=== PATIENT | female | born 1945 | race Caucasian/White ===

== ENCOUNTER 2016-08-10 03:49 | Emergency (ER) | payer MEDICARE, OTHER ==
[2016-08-10 04:45] LABS: Hematocrit 34 % (35-47); Mean Corpuscular HGB Conc 33 g/dl (31-36); Mean Corpuscular Hemoglobin 29 pg (27-31); Mean Corpuscular Volume 88 fL (80-97); Mean Platelet Volume 9 um3 (7.4-10.4); Red Cell Distribution Width 17 % (10.5-15); White Blood Count 6.5 10^3/ul (3.5-10.8)
[2016-08-10 04:54] LABS: BUN/Creatinine Ratio 31.3 (8-20); Calcium 9.2 mg/dL (8.6-10.3); EGFR African American 87.7 (>60); EGFR Non-African American 68.2 (>60); Potassium 3.8 mmol/L (3.5-5.0)
--- NOTE | 2016-08-10 05:29 | ED ---
Lavon Momin Matthew, scribed for Facundo Vaughan MD on 08/10/16 at 0428 . Palpitations / Dysrhythmia - HPI Summary HPI Summary: A 71 y/o female presents to the ED with palpitations that started at 03:15 and has since resolved. She states that her HR was measured at 80 bpm and her baseline is typically 50 bpm. Her BP was measured to be 160/70 at home. Associated symptoms include anxiety. She states that she feels like she could be having an anxiety attack. She was recently Dx with hypothyroidism. - History of Current Complaint Chief Complaint: ED Time Seen by Provider: 08/10/16 04:18 Hx Obtained From: Patient Onset/Duration: Sudden Onset, Lasting Minutes, Resolved Timing: Constant Severity Initially: Mild Severity Currently: None Character: Fast Associated Signs & Symptoms: Negative - Allergy/Home Medications Allergies/Adverse Reactions: Allergies Allergy/AdvReac Type Severity Reaction Status Date / Time Codeine Allergy GI Upset Verified 08/06/16 11:05 PMH/Surg Hx/FS Hx/Imm Hx Endocrine/Hematology History: Reports: Hx Thyroid Disease Denies: Hx Diabetes Cardiovascular History: Reports: Hx Hypertension - ON MEDS Denies: Hx Pacemaker/ICD History: Denies: Hx Dialysis, Hx Renal Disease Sensory History: Denies: Hx Hearing Aid Psychiatric History: Denies: Hx Panic Disorder - Surgical History Surgery Procedure, Year, and Place: HYSTERECTOMY, BILAT BUNIONECTOMY; FATTY TUMOR REMOVAL LEFT SHOULDER; CSP FUSION Infectious Disease History: No Infectious Disease History: Denies: Traveled Outside the [place] in Last 30 Days - Family History Known Family History: Positive: Hypertension - Social History Alcohol Use: None Hx Substance Use: No Hx Tobacco Use: No Review of Systems Constitutional: Negative Eyes: Negative ENT: Negative Positive: Palpitations Respiratory: Negative Gastrointestinal: Negative Genitourinary: Negative Musculoskeletal: Negative Skin: Negative Neurological: Negative Positive: Anxious All Other Systems Reviewed And Are Negative: Yes Physical Exam Triage Information Reviewed: Yes Vital Signs On Initial Exam: Initial Vitals Temp Pulse Resp BP Pulse Ox 97.4 F 73 24 133/94 100 08/10/16 03:53 08/10/16 03:53 08/10/16 03:53 08/10/16 03:53 08/10/16 03:53 Vital Signs Reviewed: Yes Appearance: Positive: Well-Appearing, No Pain Distress Skin: Positive: Warm Head/Face: Positive: Normal Head/Face Inspection Eyes: Positive: RICKIE ENT: Positive: Hearing grossly normal Neck: Positive: Supple Respiratory/Lung Sounds: Positive: Clear to Auscultation, Breath Sounds Present Cardiovascular: Positive: RRR. Negative: Murmur Abdomen Description: Positive: Nontender, Soft Bowel Sounds: Positive: Present Musculoskeletal: Positive: Strength/ROM Intact Neurological: Positive: Sensory/Motor Intact, Alert, Oriented to Person Place, Time, Normal Gait Diagnostics - Vital Signs Vital Signs Temp Pulse Resp BP Pulse Ox 08/10/16 03:53 97.4 F 73 24 133/94 100 - Laboratory Lab Results: Lab Results 08/10/16 08/10/16 Range/Units 04:28 04:28 WBC 6.5 (3.5-10.8) 10^3/ul RBC 3.80 L (4.0-5.4) 10^6/ul Hgb 11.0 L (12.0-16.0) g/dl Hct 34 L (35-47) % MCV 88 (80-97) fL MCH 29 (27-31) pg MCHC 33 (31-36) g/dl RDW 17 H (10.5-15) % Plt Count 293 (150-450) 10^3/ul MPV 9 (7.4-10.4) um3 Neut % (Auto) 40.7 (38-83) % Lymph % (Auto) 43.9 (25-47) % [place] % (Auto) 9.4 H (1-9) % Eos % (Auto) 4.5 (0-6) % Baso % (Auto) 1.5 (0-2) % Absolute Neuts (auto) 2.7 (1.5-7.7) 10^3/ul Absolute Lymphs (auto) 2.9 (1.0-4.8) 10^3/ul Absolute Monos (auto) 0.6 (0-0.8) 10^3/ul Absolute Eos (auto) 0.3 (0-0.6) 10^3/ul Absolute Basos (auto) 0.1 (0-0.2) 10^3/ul Absolute Nucleated RBC 0 10^3/ul Nucleated RBC % 0 Sodium 137 (133-145) mmol/L Potassium 3.8 (3.5-5.0) mmol/L Chloride 105 (101-111) mmol/L Carbon Dioxide 25 (22-32) mmol/L Anion Gap 7 (2-11) mmol/L BUN 26 H (6-24) mg/dL Creatinine 0.83 (0.51-0.95) mg/dL Est GFR ( Amer) 87.7 (>60) Est GFR (Non-Af Amer) 68.2 (>60) BUN/Creatinine Ratio 31.3 H (8-20) Glucose 103 H (70-100) mg/dL Calcium 9.2 (8.6-10.3) mg/dL TSH Pending Free T4 Pending Free T3 Pending Pertinent Lab Values Are: WNL Result Diagrams: 08/10/16 04:28 08/10/16 04:28 Lab Statement: Any lab studies that have been ordered have been reviewed, and results considered in the medical decision making process. - EKG 04:09 Cardiac Rate: NL - 65 bpm EKG Rhythm: Sinus Rhythm Re-Evaluation - Re-Evaluation First Eval Change: Improved Course/Dx - Course Assessment/Plan: A 71 y/o female presents to the ED with palpitations that started at 03:15 and has since resolved. Labs were reviewed. EKG shows NSR at 65 bpm. The patient will be discharged home and follow-up with her PCP. - Diagnoses Provider Diagnoses: Palpitations Discharge - Discharge Plan Condition: Stable Disposition: HOME Patient Education Materials: Palpitations (ED) Referrals: Kika Hubbard NP [Primary Care Provider] - 3 Days Additional Instructions: Please follow-up with your primary care physician in 3 days. The documentation as recorded by the Lavon douglas Matthew accurately reflects the service I personally performed and the decisions made by , Facundo Vaughan MD.
[2016-08-10 05:43] LABS: TSH (Thyroid Stimulating Horm) 0.24 mcIU/mL (0.34-5.60)
[2016-08-10 05:48] LABS: Free T3 3.3 pg/mL (2.5-3.9)
[2016-08-10 05:49] LABS: Free T4 1.31 ng/dL (0.61-1.12)
[2016-08-10 06:30] VITALS: BP 131/62
== END 2016-08-10 06:20 | disposition home or self-care (01) ==
LOC: ED 03:49
DX: R00.2 Palpitations (principal); F41.9 Anxiety disorder, unspecified; Z85.850 Personal history of malignant neoplasm of thyroid
CPT/HCPCS: 36415; 80048; 84439; 84443; 84481; 85025; 86803; 93005; 99283

== ENCOUNTER → 2016-08-26 | Day surgery (SDC) | payer MEDICARE, OTHER ==
[~2016-08-26] MED LIST: Buffered Lidocaine 1% SYR 3ML* 3 ML/SYR SYRINGE INTRADERM ONE; Bupivacaine 0.25% SDV* 30 ML ONE; Dexamethasone IV* 4 MG/ML 1 ML (4 MG) IV SLOW PU ONE; Dexamethasone IV* 4 MG/ML 1 ML (4 MG) ONE; EPHEDrine (Pressors)* 50 MG/ML VIAL ONE; Famotidine IV* 10 MG/ML 2 ML (20 mg) IV ONE; Famotidine IV* 10 MG/ML 2 ML (20 mg) ONE; Ketorolac INJ* 30 MG/ML 1 ML VIAL ONE; Lidocaine 2% PF * 5 ML VIAL ONE; Midazolam* 1 MG/ML 2 ML VIAL (2 MG) ONE; Ondansetron INJ* 2 MG/ML VIAL ONE; PROCHLORPERAZINE INJ 5 MG/ML 2 ML VIAL IV PRN; Propofol* 10 MG/ML 20 ML BTL IV PUSH ONE; ROPIVACAINE 5 MG/ML 30 ML BTL (0.5%) ONE; Rocuronium* 10 MG/ML VIAL ONE; ceFAZolin 2 GM PREMIX (*) 2 GM/50 ML BAG IVPB ONE; fentaNYL* 50 MCG/ML 2 ML VIAL (100 MCG VIAL) IV PRN; fentaNYL* 50 MCG/ML 2 ML VIAL (100 MCG VIAL) ONE; oxyCODONE/Acetamin 5/325 MG* TAB PO PRN
[2016-08-26 16:06] VITALS: BP 133/71
--- NOTE | 2016-08-30 20:03 | OP ---
CC: PCP OPERATIVE NOTE: DATE OF OPERATION: 08/26/16 DATE OF : 49 SURGEON: Mark Quarles MD BIODIESEL ENGINE SPECIALIST: ISAEL Muir ANESTHESIOLOGIST: Dr. Scales. ANESTHESIA: General interscalene block. PRE-OP DIAGNOSES: Right shoulder high-grade partial-thickness rotator cuff tear , and biceps tendinitis as well as right ring finger trigger finger. POST-OP DIAGNOSES: Right shoulder high-grade partial-thickness rotator cuff tear, and biceps tendinitis as well as right ring finger trigger finger. OPERATIVE PROCEDURE: 1. Right shoulder arthroscopy with: A. Extensive glenohumeral debridement including chondroplasty. B. Rotator cuff repair of the supraspinatus tendon, double-row. C. Subacromial decompression with chondroplasty. C. Subpectoral biceps tenodesis. 2. Right ring finger trigger release. COMPLICATIONS: None. ESTIMATED BLOOD LOSS: Minimal. IMPLANTS USED: One 4.75 HEALICOIL, one MULTI-FIX anchor, one 2.8 mm Q-FIX anchor. 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 She had an MRI that confirmed high-grade partial- thickness tear of the supraspinatus tendon as well as undersurface tear of the subscapularis and biceps tendinitis. She initially was having symptoms of acromioclavicular arthritis, but that has improved. She also complained of right ring finger triggering. Risks and benefits of the surgery versus nonoperative treatment were discussed at length and she elected to proceed with operative management. Risks included but are not limited to bleeding, infection , damage to nerves, vessels, surrounding structures, the wound nonhealing, stiffness, persistent pain, need for further surgery, scarring, incomplete relief of symptoms, recurrent triggering, retear, risks of DVT, and risks of anesthesia. She elected to proceed. DESCRIPTION OF PROCEDURE: The patient was greeted in the preoperative area by the attending surgeon. The correct extremities were marked including the right shoulder and the right ring trigger finger. The consent was confirmed and the positions were marked. The patient was then brought back to the operating suite , where she was placed in supine position on the operating table. She then underwent interscalene nerve block by the anesthesiologist, which she tolerated without difficulty. The patient then underwent general anesthesia with endotracheal intubation. After which, the examination of the shoulder was done and she was found to have full range of motion. The patient was then placed in the left lateral decubitus position with an axillary roll. All bony prominences were padded and she was supported with a pegboard. The right arm was draped unsterilely with about 10 pounds of traction. The right shoulder was then prepped and draped in the usual sterile fashion, beginning with chlorhexidine, soap scrub, and alcohol wipe and a final prep with ChloraPrep. After appropriate surgical pause indicating site, side, procedure, and administration of antibiotics; a posterolateral portal was made sharply with an 11- blade. The scope was introduced into the joint. The joint was examined. There was undersuface tearing of the rotator cuff supraspinatus tendon, which showed high- grade partial-thickness tearing about 40% of the tendon with unstable flaps. The biceps was very diseased with tendinosis as well as tendinitis. The undersurface of the subscap had partial thickness tearing. An anterior portal was made in an outside-in fashion and the shaver was brought in to debride the unstable flaps under the rotator cuff. The biceps was then tenotomized and then using the arthroscopic biter, the shaver was used to debride the biceps stump back. The undersurface of the subscap was identified and had about 5% tearing, which was debrided back. The glenohumeral joint was examined. The glenoid had grade 0 to 1 changes with a small area in the center that had grade 2 changes with unstable flaps. There was small loose debris that was evident that was debrided back with the shaver. The glenoid had grade 2 changes with unstable flaps. Again, the shaver was used to debride this back. Once the chondroplasty was completed, attention was directed to the labrum. The anterior and posterior labrum had mild unstable fraying, which was debrided back using the shaver. The inferior recess was intact, was mildly erythematous. Once the debridement and tenotomy were completed, the attention was directed to the subacromial space. There was abundant bursa that was evident in the subacromial space. The lateral portal was made in an outside-in fashion. The shaver was used to debride back the bursa, which exposed the undersurface of the acromion, which was then skeletonized using the electrocautery device, which revealed a moderate sized spur. The 4-0 oval bur was then used to do an acromioplasty. The ACL joint was examined, it was phenomic with a large osteophyte inferiorly. This was then coplanes but a formal distal clavicle excision was not done. All loose debris was removed and the rotator cuff was probed and it was found to be quite thin and easily probed through, a knife was brought in to complete the rotator cuff tear and decision was made to repair. The rotator cuff was debrided back to stable layer. The footprint was exposed using the shaver as well as the electrocautery device. The greater tuberosity was then prepared using also a rasp. Once the tendon was completely released, a one anchor 4.75 HEALICOIL was placed with excellent purchase into the bone. The sutures were then passed in a horizontal mattress configuration and tied down using arthroscopic knot tying. The 4 stranded sutures were then placed through the MULTIFIX anchor, which was then placed for the lateral row, we thus completing a double-row repair. Final images were obtained and all loose debris was removed from the shoulder. Attention was directed to the biceps, the anterior aspect of the shoulder was prepped. The bed was slightly airplaned to the right side. The anterior aspect of the shoulder was prepped and was reprepped with ChloraPrep and incision was made in line with the biceps tendon encompassing the inferior two- thirds of the pec tendon, was then made with a 15-blade. Soft tissues were carefully dissected with a Metzenbaum scissor. An electrocautery was used for hemostasis. Once the pec fascia was identified, the blunt dissection was done from here and on. The biceps groove was palpated and the [place] retractor was used to elevate the pec tendon superiorly. The biceps groove was exposed. The biceps was then brought back through the wound using a right angle clamp and it was identified to be very thick with tendinosis as well as tendinitis. The biceps groove was then prepared in the usual fashion with the electrocautery device, the small ball rasp, and the osteotome to help create a bony bleeding edge. The Q-FIX anchor was then used to drill unicortically and the Q-FIX anchor was deployed with excellent purchase. The sutures were then passed through the tendon approximately 1 cm proximal to the musculotendinous junction in a Britton-Allis type configuration. Sutures were then shuttled back after the excess stump was removed and tied down. The wounds were copiously irrigated. The anterior wound was closed in layers of 2-0 Vicryl and 0 Monocryl. The portals were closed with 3-0 nylon. Sterile dressings were applied as well as a cryo/Cuff. At this point, the next surgery was done. The drapes were removed and the patient was positioned in the supine position. A small armboard was brought to the table and the right arm was prepped and draped with care to not damage the previously repaired rotator cuff. A small forearm tourniquet was placed on the forearm. The hand was prepped and draped in the usual sterile fashion, beginning with chlorhexidine, soap, and alcohol and a final prep of ChloraPrep. The hand was prepped and draped in the usual sterile fashion. This portion of the surgery was completed using loupe magnification. After appropriate surgical pause, indicating site, side, procedure, and administration of antibiotics; the arm was exsanguinated. The tourniquet inflated to 250 mmHg. A transverse incision centered over the A1 meenakshi of the right ring finger was then made sharply with 15-blade and soft tissue were carefully dissected with gentle retractors in place to protect neurovascular bundle. The A1 meenakshi was identified. This was then sharply incised using a 15 -blade. First, the completion was done more distally to ensure that this was completely released with the scissors and then taking more proximally to make sure if it was completely released. Once there was no meenakshi apparent, the [place] retractors were then used to take the tendons out, each tendon through the wound to make sure there was no more triggering. The wound was then copiously irrigated. The incisions were closed with 4-0 nylon in an interrupted fashion. The sterile dressings were applied and tourniquet was deflated for a total time of 11 minutes and the extremity was pink and well perfused afterwards. At this point, the drapes were removed. The patient was then placed in the UltraSling with a Cryo/cuffs. The patient was then awoken from anesthesia and transferred to PACU in stable condition. POSTOPERATIVE PLAN: She will be nonweightbearing. She will be on UltraSling for 6 weeks. She will be allowed to work on elbow, wrist, and hand range of motion. She will be discharged on pain medications as well as antibiotics. DVT prophylaxis was considered, but deferred due to no previous personal or family history. I will see the patient back in about 10 to 14 days. [id number]/[facility] #: [id number] RACHEL
== END | disposition home or self-care (01) ==
LOC: OREAST 08:53
PROVIDERS: ATTEND Orthopaedic Surgery
DX: M75.101 Unspecified rotator cuff tear or rupture of right shoulder, not specified as traumatic (principal); M75.21 Bicipital tendinitis, right shoulder; M65.341 Trigger finger, right ring finger; I10 Essential (primary) hypertension; E03.9 Hypothyroidism, unspecified; E78.5 Hyperlipidemia, unspecified
CPT/HCPCS: 88304; C1713; C1776; J0690; J1100; J1885; J2250; J2405; J2704; J2795; J3010

== ENCOUNTER 2017-06-03 07:38 | Inpatient (IN) | payer MEDICARE, OTHER ==
--- NOTE | 2017-05-21 18:23 | HP ---
HISTORY AND PHYSICAL: DATE OF SURGERY: 06/03/17 DATE OF OFFICE VISIT: 05/21/17 SURGEON: Missy June MD * (DICTATED BY ISAEL GUTIÉRREZ) PROCEDURE: Left total hip arthroplasty. CHIEF COMPLAINT: Left hip pain. HISTORY OF PRESENT ILLNESS: Ms. Sanchez is a 72-year-old female with complaints of left hip pain secondary to end-stage osteoarthritis. She has failed conservative management and elected to proceed with a left total hip arthroplasty, which is scheduled for 06/03/[address] June. PAST MEDICAL HISTORY: Hypertension, hypothyroidism, GERD. PAST SURGICAL HISTORY: Hysterectomy, rotator cuff repair of right shoulder, bilateral bunionectomies, hammertoe repair, and cervical fusion. CURRENT MEDICATIONS: 1. Calcium. 2. Ibuprofen. 3. Levothyroxine. 4. Metoprolol 25 mg daily. 5. Ranitidine 150 mg twice daily. 6. Fluoxetine 40 mg daily. 7. Probiotic. 8. Vitamin B12. 9. Vitamin D3. 10. Vitamin B Complex. 11. Adrenal support. 12. Compounded estrogen/testosterone. 13. Atorvastatin 20 mg daily. ALLERGIES: CODEINE causing nausea only. FAMILY HISTORY: Cancer, stroke, and lupus. SOCIAL HISTORY: A 72-year-old female. She lives with her . She does not smoke or use drugs. She uses occasional alcohol. 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 REVIEW OF SYSTEMS: A complete 14-point review of systems was reviewed with the patient, it was positive for hypothyroidism and occasional palpitations. She denies history of DVT, PE, or anesthesia problems. PHYSICAL EXAMINATION GENERAL: She is well developed, well nourished, in no acute distress. VITAL SIGNS: She stands 5 feet 7 inches tall, weighs 150 pounds. Her blood pressure is 140/80, her heart rate is 68. HEENT: Normocephalic, atraumatic. NECK: Supple. No palpable lymph nodes. CARDIO: Regular rate and rhythm. Strong S1, S2. ABDOMEN: Soft, nontender, nondistended. MUSCULOSKELETAL: Left lower extremity, the skin is intact. There are no open wounds or abrasions. She walks with an antalgic gait, favoring her left leg. She has decreased internal and external rotation of the left hip. 2+ dorsalis pedis pulses, intact sensation. Her lower extremity muscle group strengths are intact at 5/5. NEUROLOGIC: She is alert and oriented x3. Cranial nerves II through XII are intact. ASSESSMENT AND PLAN: Ms. Sanchez is a 72-year-old female with complaints of left hip pain secondary to end-stage osteoarthritis. She has failed conservative management, elected to proceed with a left total hip arthroplasty which is scheduled for 06/03/[address] June discussed the risks and benefits of the surgery at today's visit and all of her questions were answered. Percocet, Colace, and Coumadin were sent to her pharmacy for postoperative pain control and DVT prophylaxis. She will follow up with Dr. June 2 weeks after the surgery. ISAEL GUTIÉRREZ [id number]/[facility] #: [id number] MTDD
[~2017-06-03 07:38] MED LIST changes: +Buffered Lidocaine 0.9% SYRIN* 5 ML/SYR SYRINGE INTRADERM ONE; -Buffered Lidocaine 1% SYR 3ML* 3 ML/SYR SYRINGE INTRADERM ONE; -Bupivacaine 0.25% SDV* 30 ML ONE; -Dexamethasone IV* 4 MG/ML 1 ML (4 MG) IV SLOW PU ONE; -Dexamethasone IV* 4 MG/ML 1 ML (4 MG) ONE; +DiMENhydriNATE IV* 50 MG/ML VIAL IV PUSH PRN; -EPHEDrine (Pressors)* 50 MG/ML VIAL ONE; -Famotidine IV* 10 MG/ML 2 ML (20 mg) ONE; -Ketorolac INJ* 30 MG/ML 1 ML VIAL ONE; -Lidocaine 2% PF * 5 ML VIAL ONE; -Midazolam* 1 MG/ML 2 ML VIAL (2 MG) ONE; +Morphine INJ* 2 MG/ML 1 ML SYRINGE (TWO MG - NEW SYRINGE VERSION) IV PRN; -Ondansetron INJ* 2 MG/ML VIAL ONE; -Propofol* 10 MG/ML 20 ML BTL IV PUSH ONE; -ROPIVACAINE 5 MG/ML 30 ML BTL (0.5%) ONE; -Rocuronium* 10 MG/ML VIAL ONE; +Scopolamine 1.5 mg* PATCH TRANSDERM PRN; -ceFAZolin 2 GM PREMIX (*) 2 GM/50 ML BAG IVPB ONE; -fentaNYL* 50 MCG/ML 2 ML VIAL (100 MCG VIAL) ONE; -oxyCODONE/Acetamin 5/325 MG* TAB PO PRN
[2017-06-03] MEDS ORDERED: Famotidine IV* 10 MG/ML 2 ML (20 mg) ONE (08:12)
[2017-06-03] MEDS ORDERED: Buffered Lidocaine 0.9% SYRIN* 5 ML/SYR SYRINGE ONE (08:12)
[2017-06-03] MEDS ORDERED: ceFAZolin 2 GM PREMIX (*) 2 GM/50 ML BAG IVPB ONE (08:12)
[2017-06-03] MEDS ORDERED: KETAMINE HCL* 50 MG/ML 10 ML VIAL ONE (08:35)
[2017-06-03] MEDS ORDERED: fentaNYL* 50 MCG/ML 2 ML VIAL (100 MCG VIAL) ONE (08:35)
[2017-06-03] MEDS ORDERED: Midazolam* 1 MG/ML 5 ML VIAL (5 MG) ONE (08:35)
[2017-06-03] MEDS ORDERED: Morphine PF AMP (0.5MG/ML)* 5 MG/10 ML AMP ONE (08:36)
[2017-06-03] MEDS ORDERED: Midazolam* 1 MG/ML 2 ML VIAL (2 MG) ONE (09:56)
[2017-06-03] MEDS ORDERED: Ondansetron INJ* 2 MG/ML VIAL ONE (11:00)
[2017-06-03] MEDS ORDERED: Dexamethasone IV* 4 MG/ML 1 ML (4 MG) ONE (11:00)
[2017-06-03] MEDS ORDERED: Propofol* 500 MG/50 ML BTL ONE (11:01)
[2017-06-03] MEDS ORDERED: Phenylephrine INJ* 10 MG/ML 1 ML VIAL (10 MG) ONE (11:01)
[2017-06-03] MEDS ORDERED: Bupivacaine 0.5% SDV PF* 30 ML VIAL ONE (11:01)
[2017-06-03] MEDS ORDERED: Lidocaine 2% PF * 5 ML VIAL ONE (11:01)
[2017-06-03] MEDS ORDERED: PROCHLORPERAZINE INJ 5 MG/ML 2 ML VIAL IV PRN (11:04)
[2017-06-03] MEDS ORDERED: Ketorolac INJ* 30 MG/ML 1 ML VIAL IV PRN (11:04)
[2017-06-03] MEDS ORDERED: Scopolamine 1.5 mg* PATCH TRANSDERM PRN (11:04)
[2017-06-03] MEDS ORDERED: Ondansetron INJ* 2 MG/ML VIAL IV PRN (11:04)
[2017-06-03] MEDS ORDERED: DiMENhydriNATE IV* 50 MG/ML VIAL IV PUSH PRN (11:04)
[2017-06-03] MEDS ORDERED: Scopolamine PATCH Remove* 1 NOTE MISC PATCH OFF PRN (11:04)
[2017-06-03] MEDS ORDERED: diPHENhydraMINE IV* 50 MG/ML 1 ml VIAL (BENADRYL) IV PRN (11:04)
[2017-06-03] MEDS ORDERED: Naloxone* 2 MG in NS 0.9% 250 ML* 250 ML IV PRN (11:04)
[2017-06-03] MEDS ORDERED: Nalbuphine* 20 MG/ML 1 ML VIAL IV PRN (11:04)
[2017-06-03] MEDS ORDERED: Naloxone* 0.4 MG/ML 1 ML VIAL IV PRN (11:04)
[2017-06-03] MEDS ORDERED: Bisacodyl SUPP* 10 MG SUPP PR PRN (11:34)
[2017-06-03] MEDS ORDERED: Magnesium Hydroxide LIQ* 30 ML UDC PO PRN (11:34)
[2017-06-03] MEDS ORDERED: Polyethylene Glycol 3350* 17 GM PACKET PO PRN (11:34)
[2017-06-03] MEDS ORDERED: Acetaminophen TAB* 325 MG PO PRN (11:34)
[2017-06-03] MEDS ORDERED: ceFAZolin 1 GM VIAL(*) 1 GM in NS 0.9% 50 ML* 50 ML IVPB SCH (12:00)
--- NOTE | 2017-06-03 12:37 | RAD ---
HISTORY: Status post left hip arthroplasty COMPARISONS: June 03, 2017 at 11:18 AM VIEWS: 1, Single frontal view of the pelvis FINDINGS: BONE DENSITY: Normal. BONES: The patient is status post left hip arthroplasty. On the single frontal projection, there is no appreciable hardware failure or osteolysis. JOINTS: The patient is status post left hip arthroplasty ALIGNMENT: There is no dislocation. SOFT TISSUES: Unremarkable. OTHER FINDINGS: None. IMPRESSION: STATUS POST LEFT HIP ARTHROPLASTY
--- NOTE | 2017-06-03 12:49 | RAD ---
CPT II Codes: 6045F INDICATION: There are scattered sutures that did not meet the final count during left MIGUEL TECHNIQUE: Intraoperative fluoroscopy was provided during left total hip arthroplasty. FINDINGS: A single AP spot film depicts the acetabular cup prosthesis and femoral shaft prosthesis in anatomic alignment. The femoral head prosthesis has not yet been installed. Visualized bones appear to be intact and appropriately aligned. No suture needles are visualized. Fluoroscopy time: 1 second IMPRESSION: As above.
--- NOTE | 2017-06-03 13:10 | CONSULT ---
Subjective Date of Service: 06/03/17 Interval History: This is a pleasant 72 year old female with long standing history of OA of the left hip that failed conservative treatment that underwent an elective Left MIGUEL today. She was seen in the PAC, in NAD, tremulous likely 2/2 anesthesia effects. No complaints, moderately drowsy, but appropriate. Family History: Findings - FatherCAD, CVA; Mother lung and brain CA Social History: Findings - Denies smoking, denies ETOH, denies illicit substance use Past Medical History: Findings - HTN, hypothyroidism, adrenal insufficiency, OA , GERD, HLP, depression. Surgical hx includes ACDF, partial hysterectomy, bunionectomy, shoulder arthroplasty Review of Systems - Measurements Intake and Output: Intake and Output Last 24 Hours 06/01/17 06/02/17 06/03/17 06/04/17 06:59 06:59 06:59 06:59 Intake Total 2550 Output Total 550 Balance 2000 Weight 150 lb Intake: IV Fluids 2550 LR 2500 NS 50ML, Cefazolin 2G 50 Output: Andrade 550 - Review of Systems Constitutional Symptoms: Negative: Weight Gain, Weight Loss, Weakness, Fatigue, Fever, Night Sweats, Unexplained Falls, Other Dermatology: Positive: Normal HEENT: Positive: Normal Eyes: Positive: Normal Thyroid: Positive: Primary Hypothyroidism Pulmonary: Positive: Normal Cardiology: Positive: Normal Gastroenterology: Positive: Normal Genital - Urinary: Positive: Normal Genitourinay - Female: Positive: Menopause Musculoskeletal: Positive: Joint Pain, Osteoporosis Endocrinology: Positive: Thyroid Problems, Adrenal Problems Hematologic/Lymphatic: Negative: Anemia, Easy Brusing, Hx Leukemia, Hx Lymphoma, Use of Anticoagulant, Use of Antiplatelet Drugs, Other Neurology: Positive: Normal Psychiatry: Positive: Normal Allergic/Immunologic: Negative: Hx Anaphylaxis, Hx Angioedema, Hx Environmental, Hx Seasonal, Athsma, Hx HIV, Immunocompromise, Swollen Glands LymphNodes, Other Objective Active Medications: Acetaminophen (Tylenol Tab*) 650 mg PO Q4H PRN PRN Reason: PAIN OR TEMPERATURE Hydrocodone Bitart/Acetaminophen ([place] 5-325 Tab*) 2 tab PO Q4H PRN PRN Reason: give one dose to start Atorvastatin Calcium (Lipitor*) 20 mg PO 1700 PEGGY Bisacodyl (Dulcolax Supp*) 10 mg CO DAILY PRN PRN Reason: constipation Dimenhydrinate (Dramamine Iv*) 12.5 mg IV PUSH ONCE PRN PRN Reason: NAUSEA/VOMITING Dimenhydrinate (Dramamine Iv*) 12.5 mg IV PUSH Q6H PRN PRN Reason: Nausea/Vomiting Diphenhydramine HCl (Benadryl Iv*) 12.5 mg IV Q6H PRN PRN Reason: PRURITIS Diphenhydramine HCl (Benadryl Iv*) 12.5 mg IV Q6H PRN PRN Reason: PRURITIS Docusate Sodium (Colace Cap*) 100 mg PO BID [facility] Enoxaparin Sodium (Lovenox(*)) 30 mg SUBCUT Q24H [facility] Famotidine (Pepcid Iv*) 20 mg IV ONCE ONE Stop: 06/03/17 06:01 Last Admin: 06/03/17 08:40 Dose: 20 mg Fentanyl Citrate (Fentanyl*) 25 mcg IV Q5M PRN PRN Reason: PAIN - MODERATE Lactated Ringer's (Lactated Ringers 1000 Ml Bag*) 1,000 mls @ 125 mls/hr IV PER RATE [facility] Last Admin: 06/03/17 08:40 Dose: 125 mls/hr Naloxone HCl 2 mg/ Sodium (Chloride) 255 mls @ 21.68 mls/hr IV .INITIAL RATE PRN; 2.5 MCG/KG/HR PRN Reason: severe pruritis Stop: 06/04/17 03:03 Cefazolin Sodium 1 gm/ Sodium (Chloride) 50 mls @ 200 mls/hr IVPB Q8H [facility] Stop: 06/04/17 04:14 Lactated Ringer's (Lactated Ringers 1000 Ml Bag*) 1,000 mls @ 100 mls/hr IV PER RATE [facility] Ketorolac Tromethamine (Toradol Inj*) 15 mg IV Q6H PRN PRN Reason: PAIN Lactulose (Lactulose*) 30 ml PO Q6H PRN PRN Reason: constipation Levothyroxine Sodium (Synthroid Tab*) 137 mcg PO QAM [facility] Lidocaine/Sodium Bicarbonate (Buffered Lidocaine 0.9% Syrin*) 0.2 ml INTRADERM ONCE ONE Stop: 06/02/17 10:59 Last Admin: 06/03/17 08:39 Dose: 1 applic Magnesium Hydroxide (Milk Of Magnesia Liq*) 30 ml PO Q6H PRN PRN Reason: constipation Morphine Sulfate (Morphine Inj (Syringe)*) 2 mg IV Q5M PRN PRN Reason: PAIN - SEVERE Morphine Sulfate (Morphine Inj (Syringe)*) 2 mg IV Q2H PRN PRN Reason: PAIN Nalbuphine HCl (Nubain*) 5 mg IV Q6H PRN PRN Reason: pruritis Naloxone HCl (Narcan*) 0.08 mg IV Q2M PRN PRN Reason: respiratory depression Non-Formulary Medication (Fluoxetine Hcl [Prozac]) 40 mg PO DAILY PEGGY Non-Formulary Medication (Metoprolol Succinate) 25 mg PO QAM PEGGY Ondansetron HCl (Zofran Inj*) 2 mg IV Q6H PRN PRN Reason: Nausea/Vomiting Ondansetron HCl (Zofran Inj*) 4 mg IV Q6H PRN PRN Reason: nausea Ondansetron HCl (Zofran Tab*) 4 mg PO Q6H PRN PRN Reason: NAUSEA Oxycodone HCl (Roxycodone Tab*) 10 mg PO Q4H PRN PRN Reason: SEVERE PAIN Oxycodone/Acetaminophen (Percocet 5/325 Tab*) 1 tab PO Q4H PRN PRN Reason: PAIN Oxycodone/Acetaminophen (Percocet 5/325 Tab*) 2 tab PO Q4H PRN PRN Reason: PAIN Pharmacy Profile Note (Scopolamine Patch Remove*) 1 note PATCH OFF Q72H ONE Stop: 06/06/17 05:44 Pharmacy Profile Note (Scopolamine Patch Remove*) 1 note PATCH OFF .AFTER 72 HOURS PRN PRN Reason: nausea Stop: 06/06/17 11:05 Polyethylene Glycol/Electrolytes (Miralax*) 17 gm PO DAILY PRN PRN Reason: Constipation Prochlorperazine Edisylate (Compazine Inj*) 2.5 mg IV ONCE PRN PRN Reason: NAUSEA/VOMITING Prochlorperazine Edisylate (Compazine Inj*) 2.5 mg IV Q6H PRN PRN Reason: NAUSEA/VOMITING Scopolamine (Transderm-Scop 1.5 Mg Patch*) 1 patch TRANSDERM Q72H PRN PRN Reason: Nausea/Vomiting Scopolamine (Transderm-Scop 1.5 Mg Patch*) 1 patch TRANSDERM Q72H PRN PRN Reason: nausea Warfarin Sodium (Coumadin Tab(*)) 6 mg PO ONCE@1700 ONE PRN Reason: Protocol Stop: 06/03/17 17:01 Vital Signs 06/03/17 06/03/17 06/03/17 07:56 12:43 12:50 Temperature 97.0 F 97.3 F Pulse Rate 68 72 78 Respiratory 17 13 15 Rate Blood Pressure 125/68 139/65 142/75 (mmHg) O2 Sat by Pulse 97 100 100 Oximetry 06/03/17 12:59 Temperature Pulse Rate 79 Respiratory 15 Rate Blood Pressure 130/64 (mmHg) O2 Sat by Pulse 100 Oximetry Oxygen Devices in Use Now: Nasal Cannula Eyes: No Scleral Icterus Ears/Nose/Mouth/Throat: NL Teeth, Lips, Gums Neck: Trachea Midline, No Thyroid Enlargement, Masses Respiratory: Symmetrical Chest Expansion and Respiratory Effort, Clear to Auscultation Cardiovascular: NL Sounds; No Murmurs; No JVD, No Edema Abdominal: NL Sounds; No Tenderness; No Distention Lymphatic: No Cervical Adenopathy Extremities: No Edema, No Clubbing, Cyanosis Skin: No Rash or Ulcers Neurological: Alert and Oriented x 3, NL Sensation EKG Data: Pre-op EKG reviewed shows RSR with no ectopy and no ST segment changes Assessment/Plan - Billing Impression: This is a 72 year old female, admitted to surgical service for elective LTHA, for which we are requested to help co-manage medically for hypertension. Diagnoses and Plan: 1. OA, s/p LTHA 2. Post-op Tremors, likely r/t anesthesia, stable 3. HTN, stable 4. Hypothyroidism 5. Hx of Depression Plan - Primary POC as per orthopedics, pain control per protocol, VTE prophylaxis with coumadin per surgery - Hip precautions, WBAT and PT as per surgery - PUD prophy with pepcid - Regular diet - Continue metoprolol, monitor BP, adjust as needed - Monitor H&H daily - Continue levothyroxine daily - Continue maintenance IVF - Full code Attending: Estuardo Nelson
--- NOTE | 2017-06-03 13:58 | RAD ---
HISTORY: Status post left hip arthroplasty COMPARISONS: June 03, 2017 at 12:09 PM VIEWS: 3, Frontal view of the pelvis with frontal and crosstable lateral views of the left hip FINDINGS: BONE DENSITY: Normal. BONES: The patient is status post left hip arthroplasty. There is no hardware failure or osteolysis. JOINTS: The patient is status post left hip arthroplasty ALIGNMENT: There is no dislocation. SOFT TISSUES: Unremarkable. OTHER FINDINGS: None. IMPRESSION: STATUS POST LEFT HIP ARTHROPLASTY
[2017-06-03] MEDS: HYDROcodone/ACETAMIN 5-325 MG* 1 TAB PO PRN ×2 (15:03→20:29)
[2017-06-03] MEDS ORDERED: Warfarin TAB(*) 6 MG PO ONE (17:00)
[2017-06-03] MEDS: Atorvastatin* 20 MG TAB PO SCH (17:48)
[2017-06-03] MEDS: ceFAZolin 1 GM VIAL(*) 1 GM in NS 0.9% 50 ML* 50 ML IVPB SCH (17:48)
[2017-06-03] MEDS: Docusate CAP* 100 MG PO SCH (20:29)
[2017-06-04] MEDS ORDERED: Ondansetron INJ* 2 MG/ML VIAL IV PRN (01:05)
[2017-06-04] MEDS ORDERED: oxyCODONE TAB* 5 MG TAB PO PRN (01:05)
[2017-06-04] MEDS ORDERED: Ondansetron TAB* 4 MG PO PRN (01:05)
[2017-06-04] MEDS ORDERED: Morphine INJ* 2 MG/ML 1 ML SYRINGE (TWO MG - NEW SYRINGE VERSION) IV PRN (01:05)
[2017-06-04] MEDS ORDERED: oxyCODONE/Acetamin 5/325 MG* TAB PO PRN ×2 (01:05)
[2017-06-04] MEDS: ceFAZolin 1 GM VIAL(*) 1 GM in NS 0.9% 50 ML* 50 ML IVPB SCH ×2 (01:57→09:56)
[2017-06-04] MEDS: HYDROcodone/ACETAMIN 5-325 MG* 1 TAB PO PRN ×5 (02:02→20:56)
[2017-06-04] MEDS: Levothyroxine TAB* 137 MCG TAB PO SCH (05:31)
[2017-06-04 05:54] LABS: Hematocrit 32 % (35-47); Hemoglobin 10.9 g/dl (12.0-16.0); Mean Platelet Volume 9 um3 (7.4-10.4)
[2017-06-04 06:10] LABS: BUN/Creatinine Ratio 18.6 (8-20); Potassium 3.8 mmol/L (3.5-5.0)
[2017-06-04 06:11] LABS: Calcium 8.9 mg/dL (8.6-10.3); EGFR African American 106.4 (>60); EGFR Non-African American 82.7 (>60)
[2017-06-04] MEDS: Docusate CAP* 100 MG PO SCH ×2 (08:14→20:56)
[2017-06-04] MEDS: FLUoxetine CAP* 20 MG PO SCH (08:14)
[2017-06-04] MEDS: Metoprolol Succinate XL TAB* 25 MG PO SCH (08:14)
[2017-06-04] MEDS ORDERED: HYDROcodone/ACETAMIN 5-325 MG* 1 TAB PO PRN ×3 (08:48→09:11)
--- NOTE | 2017-06-04 09:07 | PN ---
Progress Note - Progress Note Date of Service: 06/04/17 SOAP: Subjective: []Patient seen OOB in chair. Pain is well controlled at 09/20. She reportedly became dizzy with physical therapy, resolved with sitting down. No chest pain, shortness of breath, leg numbness, chills, nausea or vomiting. Objective: [] Vital Signs Temp 99.0 F 06/04/17 07:34 Pulse 57 06/04/17 07:34 Resp 18 06/04/17 08:20 BP 121/53 06/04/17 07:34 Pulse Ox 97 06/04/17 07:34 Intake & Output 06/03/17 06/04/17 06/04/17 18:59 06:59 18:59 Intake Total 2610 1819 Output Total 550 1200 200 Balance 2060 619 -200 Weight 150 lb Intake: IV Fluids 2550 1038 LR 2500 1038 NS 50ML, Cefazolin 2G 50 IVPB 51 ABX - CEFAZOLIN 51 Oral 60 730 Output: Urine 200 Andrade 550 1200 Other: # Bowel Movements 0 Laboratory Last Values Hgb 10.9 g/dl (12.0-16.0) L 06/04/17 05:47 Hct 32 % (35-47) L 06/04/17 05:47 Plt Count 214 10^3/ul (150-450) 06/04/17 05:47 MPV 9 um3 (7.4-10.4) 06/04/17 05:47 INR (Anticoag Therapy) 1.18 (0.89-1.11) H 06/04/17 05:47 Sodium 137 mmol/L (133-145) 06/04/17 05:47 Potassium 3.8 mmol/L (3.5-5.0) 06/04/17 05:47 Chloride 104 mmol/L (101-111) 06/04/17 05:47 Carbon Dioxide 30 mmol/L (22-32) 06/04/17 05:47 Anion Gap 3 mmol/L (2-11) 06/04/17 05:47 BUN 13 mg/dL (6-24) 06/04/17 05:47 Creatinine 0.70 mg/dL (0.51-0.95) 06/04/17 05:47 Est GFR ( Amer) 106.4 (>60) 06/04/17 05:47 Est GFR (Non-Af Amer) 82.7 (>60) 06/04/17 05:47 BUN/Creatinine Ratio 18.6 (8-20) 06/04/17 05:47 Glucose 123 mg/dL (70-100) H 06/04/17 05:47 Calcium 8.9 mg/dL (8.6-10.3) 06/04/17 05:47 General: OOB in chair sitting with cool cloth on forehead. Calm, cooperative and in no acute distress LLE: Dressing CDI, no surrounding erythema B/L LE: Calves supple, nontender, no erythema, edema or palpable cords. Negative osiris's sign. DF/PF intact. DP/PT 2+. Sensation intact distally. Assessment: []POD 1 s/p left total hip arthroplasty 06/03 Dr. June Plan: []WBAT PT/OT. Caution with position change Lovenox, coumadin 6 mg today Continue pain control.
--- NOTE | 2017-06-04 11:20 | PN ---
Subjective Date of Service: 06/04/17 Interval History: Patient seen and examined. Feeling well. Tremors in PACU resolved. Otherwise no acute overnight events. Describes one episode of dizziness this AM when she was ambulating to the bathroom. It was after pain medication was administered. No SOB, no chest pain. No changes in VS during episode. Was placed back in michelle chair by staff. Symptoms resolved quickly. Today, states "itching" on her back and intermittently throughout the night. Did not notify staff. Denies chest pain , no n/v, no urinary complaints, no calf pain, tolerating PO. Passing flatus. Family History: Findings - FatherCAD, CVA; Mother lung and brain CA Social History: Findings - Denies smoking, denies ETOH, denies illicit substance use Past Medical History: Findings - HTN, hypothyroidism, adrenal insufficiency, OA , GERD, HLP, depression. Surgical hx includes ACDF, partial hysterectomy, bunionectomy, shoulder arthroplasty Objective Active Medications: Acetaminophen (Tylenol Tab*) 650 mg PO Q4H PRN Hydrocodone Bitart/Acetaminophen ([place] 5-325 Tab*) 2 tab PO Q4H PRN Hydrocodone Bitart/Acetaminophen ([place] 5-325 Tab*) 1 tab PO Q4H PRN Atorvastatin Calcium (Lipitor*) 20 mg PO 1700 PEGGY Bisacodyl (Dulcolax Supp*) 10 mg MI DAILY PRN Diphenhydramine HCl (Benadryl Iv*) 12.5 mg IV Q6H PRN Docusate Sodium (Colace Cap*) 100 mg PO BID PEGGY Enoxaparin Sodium (Lovenox(*)) 30 mg SUBCUT Q24H PEGGY Fluoxetine HCl (Prozac Cap*) 40 mg PO DAILY PEGGY Lactated Ringer's (Lactated Ringers 1000 Ml Bag*) 1,000 mls @ 100 mls/hr IV PER RATE PEGGY Ketorolac Tromethamine (Toradol Inj*) 15 mg IV Q6H PRN Lactulose (Lactulose*) 30 ml PO Q6H PRN Levothyroxine Sodium (Synthroid Tab*) 137 mcg PO DAILY@0600 PEGGY Magnesium Hydroxide (Milk Of Magnesia Liq*) 30 ml PO Q6H PRN Metoprolol Succinate (Toprol Xl Tab*) 25 mg PO QAM PEGGY Morphine Sulfate (Morphine Inj (Syringe)*) 2 mg IV Q2H PRN Ondansetron HCl (Zofran Inj*) 4 mg IV Q6H PRN Ondansetron HCl (Zofran Tab*) 4 mg PO Q6H PRN Oxycodone HCl (Roxycodone Tab*) 10 mg PO Q4H PRN Pharmacy Profile Note (Scopolamine Patch Remove*) 1 note PATCH OFF .AFTER 72 HOURS PRN Pharmacy Profile Note (Coumadin Daily Reminder*) 1 note FOLLOW UP 1700 PEGGY Polyethylene Glycol/Electrolytes (Miralax*) 17 gm PO DAILY PRN Vital Signs 06/03/17 06/03/17 06/03/17 12:43 12:50 12:59 Temperature 97.3 F Pulse Rate 72 78 79 Respiratory 13 15 15 Rate Blood Pressure 139/65 142/75 130/64 (mmHg) O2 Sat by Pulse 100 100 100 Oximetry 06/03/17 06/03/17 06/03/17 13:20 13:36 13:42 Temperature 99.1 F Pulse Rate 74 69 67 Respiratory 16 16 15 Rate Blood Pressure 136/93 141/70 136/62 (mmHg) O2 Sat by Pulse 100 98 96 Oximetry 06/03/17 06/03/17 06/03/17 14:14 14:45 15:03 Temperature 100.0 F Pulse Rate 67 68 Respiratory 16 16 16 Rate Blood Pressure 118/55 120/61 (mmHg) O2 Sat by Pulse 96 99 Oximetry 06/03/17 06/03/17 06/03/17 15:45 16:00 16:45 Temperature 97.9 F 97.0 F Pulse Rate 70 67 Respiratory 16 16 Rate Blood Pressure 115/55 122/62 (mmHg) O2 Sat by Pulse 97 99 96 Oximetry 06/03/17 06/03/17 06/03/17 17:55 18:47 20:29 Temperature 98.7 F Pulse Rate 63 Respiratory 16 16 16 Rate Blood Pressure 122/64 (mmHg) O2 Sat by Pulse 98 Oximetry 06/03/17 06/03/17 06/03/17 20:33 20:36 20:43 Temperature 98.3 F Pulse Rate 64 Respiratory 16 16 14 Rate Blood Pressure 124/68 (mmHg) O2 Sat by Pulse 98 Oximetry 06/03/17 06/03/17 06/04/17 22:03 23:45 02:02 Temperature 98.4 F Pulse Rate 64 Respiratory 14 14 16 Rate Blood Pressure 117/54 (mmHg) O2 Sat by Pulse 97 Oximetry 06/04/17 06/04/17 06/04/17 03:37 04:27 04:57 Temperature 98.3 F Pulse Rate 63 Respiratory 17 14 Rate Blood Pressure 121/52 (mmHg) O2 Sat by Pulse 98 98 Oximetry 06/04/17 06/04/17 06/04/17 07:34 08:00 08:20 Temperature 99.0 F Pulse Rate 57 Respiratory 16 18 18 Rate Blood Pressure 121/53 (mmHg) O2 Sat by Pulse 97 Oximetry 06/04/17 06/04/17 09:16 11:03 Temperature Pulse Rate 64 Respiratory 18 18 Rate Blood Pressure 113/61 (mmHg) O2 Sat by Pulse 99 Oximetry Oxygen Devices in Use Now: None Appearance: Well appearing, NAD, at bedside Eyes: No Scleral Icterus Ears/Nose/Mouth/Throat: Mucous Membranes Moist Neck: NL Appearance and Movements; NL JVP Respiratory: Symmetrical Chest Expansion and Respiratory Effort, Clear to Auscultation Cardiovascular: NL Sounds; No Murmurs; No JVD Abdominal: NL Sounds; No Tenderness; No Distention Extremities: No Edema Skin: No Rash or Ulcers Neurological: Alert and Oriented x 3, NL Sensation, NL Muscle Strength and Tone Nutrition: Taking PO's Result Diagrams: 06/04/17 05:47 06/04/17 05:47 Assess/Plan/Problems-Billing - Patient Problems (1) Status post total hip replacement, left Code(s): Z96.642 - PRESENCE OF LEFT ARTIFICIAL HIP JOINT SNOMED Code(s): 473366698982 Comment: - Primary POC as per ortho surgery team - Pain control per ortho - VTE prophy per ortho - OOB with hip precautions - Regular diet - Bowel regimen (2) Hypothyroidism Code(s): E03.9 - HYPOTHYROIDISM, UNSPECIFIED SNOMED Code(s): 84074209 Comment: - Continue levothyroxine daily (3) Hypertension Code(s): I10 - ESSENTIAL (PRIMARY) HYPERTENSION SNOMED Code(s): 82428541 Comment: - Monitor BP, currently stable - Continue metoprolol daily (4) Depression Code(s): F32.9 - MAJOR DEPRESSIVE DISORDER, SINGLE EPISODE, UNSPECIFIED SNOMED Code(s): 49834399 Comment: - Mood stable - Continue fluxoetine daily (5) Pruritus Code(s): L29.9 - PRURITUS, UNSPECIFIED SNOMED Code(s): 052575049 Comment: - Likely r/t medications/aesthesia - Benadryl PRN - Patient states she may take after PT this afternoon (6) Dizziness Code(s): R42 - DIZZINESS AND GIDDINESS SNOMED Code(s): 490712089 Comment: - Likely narcotic induced - Encourage assistance with ambulation - Change positions slowly - Monitor narcotics - Encourage PO intake Status and Disposition: Full code Course: Progressing as expected. Counseling and/or Coordination of Care Minutes: Care coordinated with nursing staff and orthopedic team Attending: Estuardo Nelson
--- NOTE | 2017-06-04 11:34 | OP ---
OPERATIVE REPORT: DATE OF OPERATION: 06/03/17 DATE OF : 49 ATTENDING SURGEON: Missy June MD CORPORATE PLANNER: ISAEL Mcneal Mr. De La Torre did help throughout the procedure with preparation of the leg, wound retraction, manipulati on of the hip, and wound closure. ANESTHESIOLOGIST: Dr. Pichardo. ANESTHESIA: Spinal. PRE-OP DIAGNOSIS: Severe end-stage degenerative osteoarthritis of the left hip joint secondary to de velopmental dysplasia. POST-OP DIAGNOSIS: Severe end-stage degenerative osteoarthritis of the left hip joint secondary to d evelopmental dysplasia. OPERATIVE PROCEDURE: Left total hip arthroplasty. HARDWARE USED: This is uncemented Bean total hip hardware. For the cup, a Trident 52E hemispheri angelina acetabular shell, a single 16-mm and a single 25-mm cancellous bone screw. For the liner, MDM ce mentless liner 42E. For the stem, Accolade TMZF size 3.5 with a 132-degree neck. For the head, Biol ox delta ceramic V40 femoral head 28, -4 and Alevism MDM X3 insert 28/48/42E. COMPLICATIONS: None. ESTIMATED BLOOD LOSS: 250 cc. SPECIMENS: Femoral head and acetabular reaming sent to Pathology. BRIEF HISTORY/INDICATION: Ms. Gloria Ley with years of increasingly severe left hip pain. She fa iled conservative management with anti-inflammatories, pain medication, physical therapy and intraart icular injection. Radiographs showed bone- on-bone arthritis secondary to developmental dysplasia. Due to continued pain and decreased quality of life, the patient elected to undergo left total hip ar throplasty. Informed consent was obtained from the patient. She understood the risks of surgery inc luded, but were not limited to bleeding, infection, damage to nearby structures, continued pain, need for further surgery, intraoperative fracture, nerve palsy, hardware failure or loosening, pain, disl ocation, leg length discrepancy, stroke, heart attack, blood clot, and . She wished to proceed. INTRAOPERATIVE FINDINGS: Intraoperatively, the patient was noted to have complete loss of cartilage along the femoral head and acetabulum. She had a strongly dysplastic acetabulum. She was noted to h ave hypermobility for her advanced arthritis preoperatively; therefore, an MDM implant was chosen for increased stability and range of motion. DESCRIPTION OF PROCEDURE: Ms. Gloria Ley was identified in the preanesthesia unit. Her left lowe r extremity was marked as the correct operative side. Informed consent was signed and placed in the chart. The patient was taken to the operating room and placed under spinal anesthesia. A Andrade cath eter was placed. The patient was placed in the right lateral decubitus position on the pegboard with all bony prominences were well padded. Left lower extremity was prepped and draped in the usual shruthi rile fashion. Preop time-out was made to correctly identify the patient's side and site. Appropriat e perioperative antibiotics were given within 1 hour of incision. A 12-cm posterior hip incision was made with a #10 blade and carried down to the lateral fascial laye r. Lateral fascial layer was incised in line with the skin incision. Charnley retractor was placed. The piriformis and conjoined tendons were identified on the posterolateral femur and elevated with electrocautery. These were tagged with #5 Ethibond. Next, electrocautery was used to make a standard posterolateral capsular flap and this was also tagged with #5 Ethibonds. The hip was carefully dislo cated. Lesser troch to center of the femoral head measured 60 mm. Oscillating saw was used to make the appropriate femoral neck cut. Femoral head was sent to Pathology. The femur was carefully retracted anteriorly. After appropriate placement of retractors, the acetabu lum was well visualized. A long-handled knife was used to sharply remove any remaining labrum from t he acetabular rim. The acetabulum was noted to be dysplastic and shallow. The acetabulum was sequen tially reamed up to a size 51. Bleeding subchondral bone bed was obtained. A 51 trial had good fit. A 52 Trident hemispherical shell was chosen and impacted into the acetabulum. This is a 52E shell. Excellent stability of the shell was obtained. Appropriate anteversion and abduction angle were ob tained. Two screws were placed in the superior posterior quadrant for extra stability. An [facility] liner 42E was chosen. This was impacted into the acetabulum without difficulty. Stability of the liner was checked and rechecked and noted to be stable. Next, attention was turned to preparation of the proximal femur. A canal finder was used to enter th e proximal femur. The femur was sequentially broached up to a size 3.5. A 3.5 broach had excellent fit. A 132 trial neck and a +0 femoral head was chosen. Lesser troch to center of the femoral head measured long at 65 mm; therefore, a -4 femoral head was chosen. This measured 61 mm. The hip was r educed and taken through a range of motion. The hip was stable in all positions. Soft tissue tensio n was appropriate and leg lengths were deemed to be appropriate. The hip was carefully dislocated. All trials were carefully removed. The hip was copiously irrigate d with sterile saline. Final implant chosen was an Accolade TMZF, size 3.5 with a 132-degree neck. This was impacted into the femoral canal without difficulty. Good stability and appropriate antevers ion were obtained. A Biolox Delta ceramic V40 28, -4 head was chosen as well as an Alevism X3 MD M insert E. This was impacted onto the femoral neck without difficulty. The hip was reduced and taken through a range of motion. The hip was stable in all positions. The h ip was copiously irrigated with sterile saline. Previously tagged capsule and tendons were reapproxi mated to the posterolateral femur through two trochanteric drill holes. The lateral fascial layer wa s closed using interrupted #1 Vicryls. The rest of the incision was closed in a layered fashion usin g 0 and 2- 0 Vicryls. Skin was closed using running 3-0 Monocryl with Dermabond. Sterile Adaptic, 4 x4s, and paper tape were used to cover the incision. The patient's anesthesia was reversed without difficulty. She was taken to the PACU in stable condit ion. Intended weightbearing will be weightbearing as tolerated. Intended DVT prophylaxis will be Co umadin with the Lovenox bridge. [id number]/[facility] #: [id number]
[2017-06-04] MEDS ORDERED: Enoxaparin(*) 30 MG/0.3 ML SYR SUBCUT SCH (12:00)
[2017-06-04] MEDS: TESTOSTERONE TOPICAL SCH (12:31)
[2017-06-04] MEDS: PROGESTERONE TOPICAL SCH (12:31)
[2017-06-04] MEDS: diPHENhydraMINE IV* 50 MG/ML 1 ml VIAL (BENADRYL) IV PRN ×2 (14:45→20:57)
[2017-06-04] MEDS: Atorvastatin* 20 MG TAB PO SCH (16:46)
[2017-06-04] MEDS ORDERED: Warfarin TAB(*) 6 MG PO ONE (17:00)
[2017-06-05] MEDS: HYDROcodone/ACETAMIN 5-325 MG* 1 TAB PO PRN ×3 (05:35→15:50)
[2017-06-05] MEDS: Levothyroxine TAB* 137 MCG TAB PO SCH (05:35)
[2017-06-05 05:40] LABS: Hematocrit 30 % (35-47); Hemoglobin 10.3 g/dl (12.0-16.0)
--- NOTE | 2017-06-05 09:12 | PN ---
Progress Note - Progress Note Date of Service: 06/05/17 SOAP: Subjective: Pt. reports pain is moderate. Would like to stay until tomorrow. Objective: LLE - dressing changed, inc c/d/i. distally nvi. Vital Signs: Temp Pulse Resp BP Pulse Ox 99.4 F 79 16 120/59 96 06/05/17 04:43 06/05/17 04:43 06/05/17 05:35 06/05/17 04:43 06/05/17 04:43 Laboratory Results - last 24 hr 06/05/17 06/05/17 05:15 05:15 Hgb 10.3 L Hct 30 L INR (Anticoag Therapy) 1.67 H Assessment: 72 yo F pod 2 s/p LTHA Plan: wbat lle post hip precautions pt/ot d/c lovenox 2 mg coumadin tonight plan d/c to home with vns 06/06.
[2017-06-05] MEDS: FLUoxetine CAP* 20 MG PO SCH (10:02)
[2017-06-05] MEDS: Metoprolol Succinate XL TAB* 25 MG PO SCH (10:02)
[2017-06-05] MEDS: Docusate CAP* 100 MG PO SCH ×2 (10:02→19:30)
[2017-06-05] MEDS: PROGESTERONE TOPICAL SCH (10:09)
[2017-06-05] MEDS: TESTOSTERONE TOPICAL SCH (10:09)
--- NOTE | 2017-06-05 12:01 | PN ---
Subjective Date of Service: 06/05/17 Interval History: HOSPITALIST PROGRESS NOTE Patient seen and examined at bedside. Feels well today, pain is controlled. Tolerating diet with no N/V. Denies dizziness or lightheadedness. Family History: Unchanged from Admission Social History: Unchanged from Admission Past Medical History: Unchanged from Admission Objective Active Medications: Acetaminophen (Tylenol Tab*) 650 mg PO Q4H PRN PRN Reason: PAIN OR TEMPERATURE Hydrocodone Bitart/Acetaminophen ([place] 5-325 Tab*) 2 tab PO Q4H PRN PRN Reason: PAIN - MODERATE TO SEVERE Last Admin: 06/05/17 10:02 Dose: 2 tab Hydrocodone Bitart/Acetaminophen ([place] 5-325 Tab*) 1 tab PO Q4H PRN PRN Reason: PAIN - MILD TO MODERATE Atorvastatin Calcium (Lipitor*) 20 mg PO 1700 [facility] Last Admin: 06/04/17 16:46 Dose: 20 mg Bisacodyl (Dulcolax Supp*) 10 mg SD DAILY PRN PRN Reason: constipation Diphenhydramine HCl (Benadryl Iv*) 12.5 mg IV Q6H PRN PRN Reason: PRURITIS Last Admin: 06/04/17 20:57 Dose: 12.5 mg Docusate Sodium (Colace Cap*) 100 mg PO BID [facility] Last Admin: 06/05/17 10:02 Dose: 100 mg Fluoxetine HCl (Prozac Cap*) 40 mg PO DAILY [facility] Last Admin: 06/05/17 10:02 Dose: 40 mg Ketorolac Tromethamine (Toradol Inj*) 15 mg IV Q6H PRN PRN Reason: PAIN Lactulose (Lactulose*) 30 ml PO Q6H PRN PRN Reason: constipation Levothyroxine Sodium (Synthroid Tab*) 137 mcg PO DAILY@0600 [facility] Last Admin: 06/05/17 05:35 Dose: 137 mcg Magnesium Hydroxide (Milk Of Magnesia Liq*) 30 ml PO Q6H PRN PRN Reason: constipation Last Admin: 06/04/17 08:14 Dose: 30 ml Metoprolol Succinate (Toprol Xl Tab*) 25 mg PO QAM [facility] Last Admin: 06/05/17 10:02 Dose: 25 mg Morphine Sulfate (Morphine Inj (Syringe)*) 2 mg IV Q2H PRN PRN Reason: PAIN Progesterone/ (Testosterone) 1 dose TOPICAL DAILY [facility] Last Admin: 06/05/17 10:09 Dose: 1 dose Ondansetron HCl (Zofran Inj*) 4 mg IV Q6H PRN PRN Reason: nausea Ondansetron HCl (Zofran Tab*) 4 mg PO Q6H PRN PRN Reason: NAUSEA Oxycodone HCl (Roxycodone Tab*) 10 mg PO Q4H PRN PRN Reason: SEVERE PAIN Pharmacy Profile Note (Scopolamine Patch Remove*) 1 note PATCH OFF .AFTER 72 HOURS PRN PRN Reason: nausea Stop: 06/06/17 11:05 Pharmacy Profile Note (Coumadin Daily Reminder*) 1 note FOLLOW UP 1700 [facility] Last Admin: 06/04/17 16:49 Dose: 1 note Polyethylene Glycol/Electrolytes (Miralax*) 17 gm PO DAILY PRN PRN Reason: Constipation Warfarin Sodium (Coumadin Tab(*)) 2 mg PO ONCE@1700 NR PRN Reason: Protocol Stop: 06/05/17 23:59 Vital Signs 06/05/17 06/05/17 06/05/17 04:43 05:35 07:39 Temperature 99.4 F 98.4 F Pulse Rate 79 75 Respiratory 16 16 16 Rate Blood Pressure 120/59 121/53 (mmHg) O2 Sat by Pulse 96 96 Oximetry Oxygen Devices in Use Now: None Appearance: Pleasant lady lying in bed in NAD. Eyes: No Scleral Icterus Ears/Nose/Mouth/Throat: Mucous Membranes Moist Neck: Trachea Midline Respiratory: Symmetrical Chest Expansion and Respiratory Effort, Clear to Auscultation Cardiovascular: RRR - Normal S1 and S2 Extremities: - - Left thigh is soft, no calf tenderness, good capillary refill, wiggles toes, sensation intact Neurological: Alert and Oriented x 3, NL Muscle Strength and Tone Lines/Tubes/Other Access: Clean, Dry and Intact Peripheral IV Nutrition: Taking PO's Result Diagrams: 06/05/17 05:15 06/04/17 05:47 Assess/Plan/Problems-Billing Assessment: Mrs. Gloria Ley is a 72yo F with PMH of HTN, hypothyroidism, adrenal insufficiency, GERD who was admitted for an elective left MIGUEL. - Patient Problems (1) Status post total hip replacement, left Comment: - Management as per Ortho. (2) Hypertension Comment: - Controlled. - Continue Metoprolol. (3) Hypothyroidism Comment: - Continue levothyroxine. (4) DVT prophylaxis Comment: - Lovenox/Warfarin as per Ortho. (5) Full code status Status and Disposition: Inpatient. Ortho anticipates d/c in AM.
[2017-06-05] MEDS ORDERED: Warfarin TAB(*) 2 MG PO NR (17:00)
[2017-06-05] MEDS: Atorvastatin* 20 MG TAB PO SCH (17:39)
[2017-06-05] MEDS: diPHENhydraMINE IV* 50 MG/ML 1 ml VIAL (BENADRYL) IV PRN (20:03)
[2017-06-06] MEDS: HYDROcodone/ACETAMIN 5-325 MG* 1 TAB PO PRN ×2 (00:30→08:01)
[2017-06-06 05:32] LABS: Hematocrit 31 % (35-47); Hemoglobin 10.4 g/dl (12.0-16.0)
[2017-06-06] MEDS: Levothyroxine TAB* 137 MCG TAB PO SCH (05:41)
[2017-06-06] MEDS ORDERED: Scopolamine PATCH Remove* 1 NOTE MISC PATCH OFF ONE (05:43)
[2017-06-06] MEDS: Metoprolol Succinate XL TAB* 25 MG PO SCH (08:01)
[2017-06-06] MEDS: Docusate CAP* 100 MG PO SCH ×2 (08:01→09:15)
[2017-06-06] MEDS: FLUoxetine CAP* 20 MG PO SCH (08:01)
[2017-06-06] MEDS: TESTOSTERONE TOPICAL SCH (08:08)
[2017-06-06] MEDS: PROGESTERONE TOPICAL SCH (08:08)
[2017-06-06 11:44] VITALS: BP 106/52
--- NOTE | 2017-06-06 12:21 | PN ---
Progress Note - Progress Note Date of Service: 06/06/17 SOAP: Subjective: 72 y/o female s/p L MIGUEL with Dr. Cervantes 06/03. Patient reports feeling well, eager for D/C, pain controlled. VSS afebrile overnight Objective: GEneral- Well appearing, NAD, AO sitting in chair comfortably MSK- Dressing removed, I C/D/I, no induration noted, new dressing placed, + DF/ PF b/l, neg homans b/l, sensation intact to light touch, PT 2+ b/l, minimal swelling b/l LE's Vital Signs Temp 98.2 F 06/06/17 11:12 Pulse 63 06/06/17 11:12 Resp 17 06/06/17 11:12 BP 106/52 06/06/17 11:12 Pulse Ox 98 06/06/17 11:12 Intake & Output 06/05/17 06/06/17 06/06/17 18:59 06:59 18:59 Intake Total 758 600 320 Output Total 1500 1450 Balance -742 -850 320 Intake: Oral 758 600 320 Output: Urine 1500 1450 Other: Date of Last Bowel 06/06/17 Movement # Bowel Movements 1 Estimated Stool Amount Large Small Laboratory Results - last 24 hr 06/06/17 06/06/17 05:24 05:24 Hgb 10.4 L Hct 31 L INR (Anticoag Therapy) 1.96 H Assessment: STable 72 y/o female s/p L MIGUEL with Dr. Cervantes 06/03. Plan: - DVT prophly- INR 1.96, continue coumadin - Continue PT/ OT as shown - FOllow up with Dr. cervantes within 10-14 days - Pain control with [place], new script sent Active Medications Generic Name Dose Route Start Last Admin Trade Name Freq PRN Reason Stop Dose Admin Acetaminophen 650 mg 06/03/17 11:34 Tylenol Tab* PO Q4H PRN PAIN OR TEMPERATURE Hydrocodone Bitart/Acetaminophen 2 tab 06/04/17 09:11 06/06/17 08:01 [place] 5-325 Tab* PO 2 tab Q4H PRN Administration PAIN - MODERATE TO SEVERE Hydrocodone Bitart/Acetaminophen 1 tab 06/04/17 09:11 [place] 5-325 Tab* PO Q4H PRN PAIN - MILD TO MODERATE Atorvastatin Calcium 20 mg 06/03/17 17:00 06/05/17 17:39 Lipitor* PO 20 mg 1700 PEGGY Administration Bisacodyl 10 mg 06/03/17 11:34 Dulcolax Supp* DE DAILY PRN constipation Diphenhydramine HCl 12.5 mg 06/04/17 01:50 06/05/17 20:03 Benadryl Iv* IV 12.5 mg Q6H PRN Administration PRURITIS Docusate Sodium 100 mg 06/03/17 21:00 06/06/17 09:15 Colace Cap* PO Not Given BID PEGGY Fluoxetine HCl 40 mg 06/04/17 09:00 06/06/17 08:01 Prozac Cap* PO 40 mg DAILY PEGGY Administration Ketorolac Tromethamine 15 mg 06/03/17 11:04 Toradol Inj* IV Q6H PRN PAIN Lactulose 30 ml 06/03/17 11:34 Lactulose* PO Q6H PRN constipation Levothyroxine Sodium 137 mcg 06/04/17 06:00 06/06/17 05:41 Synthroid Tab* PO 137 mcg DAILY@0600 PEGGY Administration Magnesium Hydroxide 30 ml 06/03/17 11:34 06/04/17 08:14 Milk Of Magnesia Liq* PO 30 ml Q6H PRN Administration constipation Metoprolol Succinate 25 mg 06/04/17 09:00 06/06/17 08:01 Toprol Xl Tab* PO 25 mg QAM PEGGY Administration Morphine Sulfate 2 mg 06/04/17 01:05 Morphine Inj (Syringe)* IV Q2H PRN PAIN Progesterone/ 1 dose 06/04/17 12:00 06/06/17 08:08 Testosterone TOPICAL 1 dose DAILY PEGGY Administration Ondansetron HCl 4 mg 06/04/17 01:05 Zofran Inj* IV Q6H PRN nausea Ondansetron HCl 4 mg 06/04/17 01:05 Zofran Tab* PO Q6H PRN NAUSEA Oxycodone HCl 10 mg 06/04/17 01:05 Roxycodone Tab* PO Q4H PRN SEVERE PAIN Pharmacy Profile Note 1 note 06/03/17 17:00 06/05/17 17:40 Coumadin Daily Reminder* FOLLOW UP 1 note 1700 PEGGY Administration Polyethylene Glycol/Electrolytes 17 gm 06/03/17 11:34 Miralax* PO DAILY PRN Constipation
[2017-06-06 13:42] LABS: Urine Bacteria Absent (Absent); Urine Bilirubin Negative (Negative); Urine Glucose Negative (Negative); Urine Nitrite Negative (Negative)
[2017-06-06] MEDS ORDERED: Sulfamethox/Trimethoprim DS 800/160* TAB PO SCH (13:47)
--- NOTE | 2017-06-06 20:08 | DS ---
DISCHARGE SUMMARY: DATE OF ADMISSION: 06/03/17 DATE OF DISCHARGE: 06/06/17 CHIEF COMPLAINT: 1. Left hip pain. 2. Hypertension. 3. Hypothyroidism. 4. Gastroesophageal reflux disease. DISCHARGE DIAGNOSES: 1. Status post left total hip arthroplasty. 2. Urinary tract infection. 3. Hypertension. 4. Hypothyroidism. 5. Gastroesophageal reflux disease. PROCEDURE: Left total hip arthroplasty. CONSULTS: Physical Therapy, Occupational Therapy and Medicine. BRIEF HISTORY: Ms. Gloria Ley is a 72-year-old female with left hip pain secondary to end-stage osteoarthritis. She failed conservative treatment and elected to undergo a left total hip arthroplasty on 06/03/[address] June. HOSPITAL COURSE: Ms. Gloria Ley was admitted to [facility] on . She underwent a left total hip arthroplasty. Postoperatively, she recovered on the short stay surgical unit. On postop day 1, her Andrade catheter was removed and she was able to urinate on her own. She was advanced to a regular diet without difficulty and pain was well controlled with p.o. Percocet and she was restarted on her home medications. Her labs and vitals remained stable. ____ DICTATION ENDS ABRUPTLY ISAEL ROSADO [id number]/[facility] #: [id number] RACHEL
--- NOTE | 2017-06-06 21:49 | DS ---
DISCHARGE SUMMARY: DATE OF ADMISSION: 06/03/17 DATE OF DISCHARGE: 06/06/17 ATTENDING PHYSICIAN: Dr. June * (DICTATED BY ISAEL ROSADO) CHIEF COMPLAINT: 1. Left hip pain. 2. Hypertension. 3. Hypothyroidism. 4. Gastroesophageal reflux disease. DISCHARGE DIAGNOSES: 1. Status post left total hip arthroplasty. 2. Urinary tract infection. 3. Hypertension. 4. Hypothyroidism. 5. Gastroesophageal reflux disease. BRIEF HISTORY: Ms. Gloria Ley is a 72-year-old female with end-stage osteoarthritis on her left hip. She failed conservative management and elected to proceed with a left total hip arthroplasty, which she underwent on 06/03/[address] June. HOSPITAL COURSE: Ms. Gloria Ley was admitted to [facility] on . She underwent a left total hip arthroplasty postoperatively. She recovered on the short stay surgical unit. On postop day 1, her Andrade catheter was removed and she was able to urinate on her own. She was advanced to regular diet without difficulty and pain was controlled with p.o. Percocet and was able to restart her home medications. Her labs and vital signs remained stable. She was able to ambulate using a rolling walker and weight bear as tolerated on her left lower extremity. Her labs and vitals remained stable. She advanced appropriately with physical therapy and occupational therapy. Her DVT prophylaxis was managed with Lovenox and Coumadin. Her INR was therapeutic on date of discharge. On postop day #2, she did develop some urinary incontinence and her UA revealed leukocyte esterase as well as a high number of white blood cells. She was started on p.o. Bactrim and a urinary culture was sent; results are still pending. She was orthopedically and medically stable for discharge home with services. PHYSICAL EXAMINATION: General: The patient is well appearing, well nourished, alert and oriented, in no acute distress, sitting comfortably in a chair. Vital Signs: On her day of discharge, her temperature was 98.2 Fahrenheit, pulse 63, respirations 17, blood pressure 106/52, pulse ox 98%. Examination of her lower left extremity demonstrates surgical incision, which is in the posterior aspect of her hip with dressing removed. It is intact. It is without discharge or induration. No erythema or drainage visible. She did have a new sterile dressing applied on date of discharge. She has positive dorsi and plantar flexion bilaterally. Negative Homans bilaterally. Sensation is intact to light touch. Posterior tibialis is 2+ bilaterally and she has minimal swelling bilaterally in her lower extremities. LABORATORY DATA: On date of discharge reveals hemoglobin of 10.4 and hematocrit of 31. INR 1.96. Urine significant for 3+ leukocyte esterase and 2 + white blood cells. IMAGING: Radiographs showed proper placement of prosthetics and completed left total hip arthroplasty. No acute bony abnormalities. DISCHARGE MEDICATIONS: 1. Atorvastatin 20 mg daily. 2. Ferrous sulfate 50 mg tabs at bedtime. 3. Fluoxetine 40 mg. 4. [place] 1 to 2 tabs every 4 to 6 hours as needed for pain. 5. Levothyroxine 150 mcg daily. 6. Metoprolol 25 mg daily. 7. Ranitidine 150 mg daily. 8. Bactrim 800/160 twice daily. 9. Warfarin 2 mg take as directed at 5 p.m. daily. Dosages on day of discharge , 06/06/17 of 2 mg, 06/07/17 of 4 mg, 06/08/17 of 2 mg. She will have blood draws on Mondays and with visiting nurse services and will be reduced at that time. CONDITION AT DISCHARGE: Stable. DISCHARGE INSTRUCTIONS: Ms. Gloria Ley is a 72-year-old female postoperative day 2 status post left total hip arthroplasty, which was complicated only by urinary tract infection on discharge, on 06/06/17. She is orthopedically and medically stable for discharge home with services and is taking Bactrim for her urinary tract infection. Her labs and vital signs are stable. She will restart her home medications. She will take 2 mg of Coumadin tonight, 4 mg on 06/07/17 and 2 mg on 06/08/17. She will have blood draw on and will have blood draws every Friday and with visiting nurse services. She will remain weightbearing as tolerated on the left lower extremity. She will have home PT twice a week. She will take Percocet for pain control. She will take Colace up to 3 times daily for constipation and will follow up with Dr. June in 10 to 14 days for incision check and suture removal. She was instructed to go immediately to the ER if she should develop chest pain or shortness of breath, fever, increasing pain, or increasing redness ; she is to call the office immediately. MARIANA VILLALOBOS, ISAEL [id number]/[facility] #: [id number] GARNET HEALTHSamantha
== END 2017-06-06 14:05 | disposition home health service (06) | DRG 470 ==
LOC: AA 07:38 → SSU 14:41
PROVIDERS: ADMIT Orthopaedic Surgery Adult Reconstructive Orthopaedic Surgery; ATTEND Orthopaedic Surgery Adult Reconstructive Orthopaedic Surgery
PROC: 0SRB03A Replacement of Left Hip Joint with Ceramic Synthetic Substitute, Uncemented, Open Approach (ICD-10-PCS; principal; 2017-06-03 10:00)
DX: M16.12 Unilateral primary osteoarthritis, left hip (principal); E27.40 Unspecified adrenocortical insufficiency; N39.0 Urinary tract infection, site not specified; E03.9 Hypothyroidism, unspecified; F32.9 Major depressive disorder, single episode, unspecified; Z96.611 Presence of right artificial shoulder joint; R42 Dizziness and giddiness; L29.9 Pruritus, unspecified; I10 Essential (primary) hypertension; K21.9 Gastro-esophageal reflux disease without esophagitis; Z98.1 Arthrodesis status; Z90.710 Acquired absence of both cervix and uterus; Z82.3 Family history of stroke; Z72.89 Other problems related to lifestyle; Z82.49 Family history of ischemic heart disease and other diseases of the circulatory system; Z80.1 Family history of malignant neoplasm of trachea, bronchus and lung
CPT/HCPCS: 36415; 62323; 72170; 80048; 81003; 81015; 85014; 85018; 85049; 85610; 87077; 87086; 87186; 94760; A9270-GY; C1713; C1776; J0690; J1100; J1200; J1650; J2250; J2405; J2704; J3010

== ENCOUNTER 2017-06-26 13:48 | Emergency (ER) | payer MEDICARE, OTHER ==
[2017-06-26] MEDS ORDERED: NS 0.9% 1000 ML* 1,000 ML IV SCH (14:30)
[2017-06-26 15:02] LABS: ABS Basophils 0.1 10^3/ul (0-0.2); ABS Eosinophils 0.1 10^3/ul (0-0.6); ABS Lymphocytes 2.2 10^3/ul (1.0-4.8); ABS Monocytes 0.5 10^3/ul (0-0.8); ABS Neutrophils 3.3 10^3/ul (1.5-7.7); ABS Nucleated RBC 0.01 10^3/ul; Eosinophil % 1.2 % (0-6); Hematocrit 34 % (35-47); Hemoglobin 11.3 g/dl (12.0-16.0); Lymphocyte % 35.2 % (25-47); Mean Corpuscular HGB Conc 33 g/dl (31-36); Mean Corpuscular Hemoglobin 31 pg (27-31); Mean Corpuscular Volume 94 fL (80-97); Mean Platelet Volume 8 um3 (7.4-10.4); Nucleated Red Blood Cells % 0.1; Platelet Count 363 10^3/ul (150-450); Red Blood Count 3.63 10^6/ul (4.0-5.4); Red Cell Distribution Width 15 % (10.5-15); White Blood Count 6.2 10^3/ul (3.5-10.8)
[2017-06-26 15:16] LABS: EGFR Non-African American 77.6 (>60)
[2017-06-26 17:02] VITALS: BP 161/81
--- NOTE | 2017-07-17 20:13 | ED ---
Belén Momin Edward, scribed for Jason Denis MD on 06/26/17 at 1420 . Syncope/Near Syncope - HPI Summary HPI Summary: 72 y/o female BIBA s/p syncopal episode earlier today. The episode was witnessed. For the past several days the pt c/o of weakness and feeling depressed. Today the pt felt lightheaded. After a shower the pt felt very dizzy and had a brief syncopal episode. The lightheadedness did not change with position change. Sx hip replacement on 06/03/17 and has been on pain medications since. Associated sx: diarrhea since the surgery 1-2x a day, decreased appetite, vasquez stool yesterday, intermittent fever, chills. - History Of Current Complaint Chief Complaint: EDSyncope Hx Obtained From: Patient Onset/Duration: Sudden Onset Timing: Frequency Of Episodes - 1 Context: Witnessed Activity At Onset: At Rest - just came out of a shower Associated Head Trauma: No Aggravating Factor(s): Nothing Alleviating Factor(s): Nothing Associated Signs And Symptoms: Decreased Oral Intake, Diarrhea, Dizzy, Lightheadedness, Weakness, Other - fever, chils, depressed - Allergies/Home Medications Allergies/Adverse Reactions: Allergies Allergy/AdvReac Type Severity Reaction Status Date / Time Codeine Allergy GI Upset Verified 06/03/17 07:50 Latex Allergy Rash Verified 06/03/17 07:50 CAINS Allergy See Comment Uncoded 06/03/17 07:50 Home Medications: Home Medications Aspirin EC TAB* [Ecotrin EC TAB*] 325 mg PO BID 06/26/17 [History Confirmed ] Calcium Citrate TAB* [Citracal TAB*] 1,000 mg PO BID 06/26/17 [History Confirmed 06/26/17] FLUoxetine CAP* [Prozac CAP*] 40 mg PO DAILY 06/26/17 [History Confirmed ] Ranitidine TAB (NF) [Zantac TAB (NF)] 150 mg PO DAILY 06/26/17 [History Confirmed 06/26/17] PMH/Surg Hx/FS Hx/Imm Hx Previously Healthy: No Endocrine/Hematology History: Reports: Hx Thyroid Disease, Hx Anemia - NO MEDS Denies: Hx Diabetes Cardiovascular History: Reports: Hx Hypertension Denies: Hx Pacemaker/ICD Respiratory History: Reports: Hx Asthma GI History: Reports: Hx Gastroesophageal Reflux Disease History: Denies: Hx Dialysis, Hx Renal Disease Musculoskeletal History: Reports: Hx Arthritis, Hx Bursitis, Hx Osteoporosis, Hx Tendonitis - HANDS AND ARMS Sensory History: Reports: Hx Cataracts - BEGINNING OF CATARACTS, Hx Contacts or Glasses - GLASSES Denies: Hx Hearing Aid Opthamlomology History: Reports: Hx Cataracts - BEGINNING OF CATARACTS, Hx Contacts or Glasses - GLASSES Neurological History: Reports: Hx Headaches, Hx Migraine - NONE IN 4-5 YEARS Psychiatric History: Reports: Hx Anxiety, Hx Depression - CONTROL WITH MED Denies: Hx Panic Disorder - Surgical History Surgery Procedure, Year, and Place: 1976 HYSTERECTOMY, [facility]. 1999 BILAT BUNIONECTOMY; [place]. FATTY TUMOR REMOVAL LEFT SHOULDER; [place]. 2012 CSP FUSION, [place]. RT SHOULDER BICEP TENDON REPAIR 08/2016 Hx Anesthesia Reactions: No Infectious Disease History: Yes Infectious Disease History: Denies: Hx Clostridium Difficile, Hx Hepatitis, Hx Human Immunodeficiency Virus (HIV), Hx of Known/Suspected MRSA, Hx Shingles, Hx Tuberculosis, History Other Infectious Disease, Traveled Outside the in Last 30 Days - Family History Known Family History: Positive: Hypertension - Social History Alcohol Use: Rare Hx Substance Use: No Substance Use Type: Reports: None Hx Tobacco Use: No Smoking Status (MU): Never Smoked Tobacco Have You Smoked in the Last Year: No Review of Systems Positive: Fever, Chills Eyes: Negative ENT: Negative Cardiovascular: Negative Respiratory: Negative Positive: Diarrhea, Other - vasquez stool, decreased appetite Genitourinary: Negative Musculoskeletal: Negative Skin: Negative Neurological: Other - lightheadedness, dizziness Positive: Weakness, Syncope Positive: Depressed All Other Systems Reviewed And Are Negative: Yes Physical Exam - Summary Physical Exam Summary: Appearance: Well-appearing, Well-nourished Skin: Warm, Dry, No rash Eyes: Normal, PERRL, EOMI, sclera anicteric ENT: Normal Neck: Supple, nontender Respiratory: Clear to auscultation Cardiovascular: S1, S2, no murmur, no rub, no gallop Abdomen: Soft, nontender, no organomegaly Bowel sounds: Present Musculoskeletal: Normal, Strength/ROM Intact, no edema, pulses symmetrical Neurological: Normal, A&Ox3, cranial nerves II-XII WNL, follows commands, gait not tested, sensation intact to pin and light touch Psychiatric: affect normal, behavior appropriate, dressed appropriately, judgment intact Triage Information Reviewed: Yes Vital Signs On Initial Exam: Initial Vitals Temp Pulse Resp BP Pulse Ox 98.1 F 51 12 152/69 99 06/26/17 13:56 06/26/17 13:56 06/26/17 13:56 06/26/17 13:56 06/26/17 13:56 Vital Signs Reviewed: Yes - [place] Coma Scale Coma Scale Total: 15 Diagnostics - Vital Signs Vital Signs Temp Pulse Resp BP Pulse Ox 06/26/17 14:04 50 15 98 06/26/17 13:56 98.1 F 51 12 152/69 99 - Laboratory Lab Results: Lab Results 06/26/17 06/26/17 Range/Units 14:50 14:50 WBC 6.2 (3.5-10.8) 10^3/ul RBC 3.63 L (4.0-5.4) 10^6/ul Hgb 11.3 L (12.0-16.0) g/dl Hct 34 L (35-47) % MCV 94 (80-97) fL MCH 31 (27-31) pg MCHC 33 (31-36) g/dl RDW 15 (10.5-15) % Plt Count 363 (150-450) 10^3/ul MPV 8 (7.4-10.4) um3 Neut % (Auto) 53.3 (38-83) % Lymph % (Auto) 35.2 (25-47) % [place] % (Auto) 8.8 (1-9) % Eos % (Auto) 1.2 (0-6) % Baso % (Auto) 1.5 (0-2) % Absolute Neuts (auto) 3.3 (1.5-7.7) 10^3/ul Absolute Lymphs (auto) 2.2 (1.0-4.8) 10^3/ul Absolute Monos (auto) 0.5 (0-0.8) 10^3/ul Absolute Eos (auto) 0.1 (0-0.6) 10^3/ul Absolute Basos (auto) 0.1 (0-0.2) 10^3/ul Absolute Nucleated RBC 0.01 10^3/ul Nucleated RBC % 0.1 Sodium 135 (133-145) mmol/L Potassium 4.4 (3.5-5.0) mmol/L Chloride 105 (101-111) mmol/L Carbon Dioxide 26 (22-32) mmol/L Anion Gap 4 (2-11) mmol/L BUN 22 (6-24) mg/dL Creatinine 0.74 (0.51-0.95) mg/dL Est GFR ( Amer) 99.8 (>60) Est GFR (Non-Af Amer) 77.6 (>60) BUN/Creatinine Ratio 29.7 H (8-20) Glucose 89 (70-100) mg/dL Calcium 8.4 L (8.6-10.3) mg/dL Total Bilirubin 0.70 (0.2-1.0) mg/dL AST 23 (13-39) U/L ALT 21 (7-52) U/L Alkaline Phosphatase 66 (34-104) U/L Total Protein 5.5 L (6.4-8.9) g/dL Albumin 3.0 L (3.2-5.2) g/dL Globulin 2.5 (2-4) g/dL Albumin/Globulin Ratio 1.2 (1-3) Result Diagrams: 06/26/17 14:50 06/26/17 14:50 Lab Statement: Any lab studies that have been ordered have been reviewed, and results considered in the medical decision making process. - Additional Comments Diagnostic Additional Comments: 15:36 - SINUS BRADYCARDIA @ 54 BPM. BLOCKED APC, PROLONGED QT. Re-Evaluation - Re-Evaluation 1 Re-Evaluation Time: 16:12 Comment: Discuss test results, plan of care Course/Dx Assessment/Plan: TEST RESULTS WITHOUT SIGNIFICANT ABNORMALITIES. d/c lopressor, eliminate narcotics - Diagnoses Differential Diagnosis/HQI/PQRI: Positive: Ectopic Provider Diagnoses: Syncope, near Discharge - Discharge Plan Condition: Good Disposition: HOME Patient Education Materials: Syncope (ED) Referrals: Kika Hubbard NP [Primary Care Provider] - Additional Instructions: d/c lopressor, eliminate narcotics will worsen nausea, and increase vagal tone acclimate to changes in position The documentation as recorded by the Belén douglas Edward accurately reflects the service I personally performed and the decisions made by me, Jason Denis MD.
== END 2017-06-26 17:00 | disposition home or self-care (01) ==
LOC: ED 13:48
DX: R55 Syncope and collapse (principal); F32.9 Major depressive disorder, single episode, unspecified; R19.7 Diarrhea, unspecified; R42 Dizziness and giddiness; R53.1 Weakness
CPT/HCPCS: 36415; 80053; 85025; 93005; 96360; 99283

== ENCOUNTER 2017-06-29 10:13 | Emergency (ER) | payer MEDICARE, OTHER ==
[2017-06-29 10:45] LABS: Hematocrit 40 % (35-47); Hemoglobin 13.5 g/dl (12.0-16.0); Mean Corpuscular HGB Conc 34 g/dl (31-36); Mean Corpuscular Hemoglobin 32 pg (27-31); Mean Corpuscular Volume 93 fL (80-97); Mean Platelet Volume 9 um3 (7.4-10.4); Red Blood Count 4.27 10^6/ul (4.0-5.4); Red Cell Distribution Width 15 % (10.5-15); White Blood Count 7.4 10^3/ul (3.5-10.8)
[2017-06-29] MEDS ORDERED: Aspirin Low Dose CHEW TAB* 81 MG PO ONE (10:46)
[2017-06-29] MEDS ORDERED: Aspirin Low Dose CHEW TAB* 81 MG ONE (10:48)
[2017-06-29 11:02] LABS: Albumin 3.8 g/dL (3.2-5.2); BUN/Creatinine Ratio 27.7 (8-20); Calcium 9.4 mg/dL (8.6-10.3); EGFR African American 115.9 (>60); EGFR Non-African American 90.1 (>60); Globulin 2.9 g/dL (2-4); Potassium 3.7 mmol/L (3.5-5.0); Total Bilirubin 1.2 mg/dL (0.2-1.0); Total Protein 6.7 g/dL (6.4-8.9)
--- NOTE | 2017-06-29 11:13 | RAD ---
HISTORY: Chest pain COMPARISONS: May 21, 2017 VIEWS: 1: frontal portable view of the chest at 10:45 AM FINDINGS: LINES AND TUBES: None. CARDIOMEDIASTINAL SILHOUETTE: The cardiomediastinal silhouette is normal for portable technique. PLEURA: The costophrenic angles are sharp. No pleural abnormalities are noted. LUNG PARENCHYMA: The lungs are clear. ABDOMEN: The upper abdomen is clear. There is no subphrenic gas. BONES AND SOFT TISSUES: The patient is status post anterior cervical fusion. Degenerative changes are noted of the shoulders. IMPRESSION: NO ACTIVE CARDIOPULMONARY DISEASE.
[2017-06-29] MEDS ORDERED: Iohexol 350* (CONTRAST) 500 ML MDV IV ONE (11:33)
[2017-06-29] MEDS ORDERED: Morphine INJ* 2 MG/ML 1 ML CARPUJECT IV ONE (11:56)
[2017-06-29] MEDS ORDERED: Ondansetron INJ* 2 MG/ML VIAL IV ONE (11:56)
[2017-06-29] MEDS ORDERED: Morphine INJ* 4 MG/ML 1 ML CARPUJECT ONE (12:02)
[2017-06-29] MEDS ORDERED: Morphine INJ* 4 MG/ML 1 ML CARPUJECT IV ONE (13:00)
--- NOTE | 2017-06-29 13:12 | RAD ---
HISTORY: Chest pain, status post hip surgery COMPARISONS: None TECHNIQUE: Multiple contiguous axial CT scans of the chest were obtained after the administration of nonionic intravenous contrast, timed to the pulmonary arterial phase of contrast enhancement.. Coronal and sagittal multiplanar reformations are also submitted for review. FINDINGS: NECK AND THYROID: The lower neck and thyroid are unremarkable. CHEST WALL: There is no lower cervical, axillary, or supraclavicular lymphadenopathy by size criteria. HEART AND PERICARDIUM: The heart is unremarkable. AORTA AND PULMONARY VASCULATURE: There is no pulmonary arterial filling defect to suggest pulmonary embolism. There is no linear filling defect within the aorta to suggest aortic dissection. MEDIASTINUM: There is no mediastinal lymphadenopathy by size criteria. RAYO: There is no hilar lymphadenopathy by size criteria. AIRWAY AND ESOPHAGUS: The airway is unremarkable, without endobronchial filling defect. The esophagus is grossly normal. LUNG PARENCHYMA: The lungs are clear. PLEURA: No pleural abnormalities are noted. UPPER ABDOMEN: The upper abdomen is unremarkable. BONES AND SOFT TISSUES: No bone or soft tissue abnormalities are noted. OTHER: None. IMPRESSION: NO PULMONARY ARTERIAL FILLING DEFECT TO SUGGEST PULMONARY EMBOLISM.
[2017-06-29] MEDS ORDERED: NS 0.9% 1000 ML* 1,000 ML IV ONE (14:36)
[2017-06-29] MEDS ORDERED: Bisacodyl SUPP* 10 MG SUPP PR ONE (14:37)
[2017-06-29 15:19] LABS: T4 14.66 mcg/mL (6.09-12.23)
[2017-06-29 15:23] LABS: TSH (Thyroid Stimulating Horm) 1.92 mcIU/mL (0.34-5.60)
--- NOTE | 2017-06-29 16:09 | RAD ---
HISTORY: Dizziness, syncope COMPARISONS: None TECHNIQUE: Multiple contiguous axial CT scans were obtained of the head without intravenous contrast. FINDINGS: HEMORRHAGE/INFARCT: There is no hemorrhage or acute infarct. MASSES/SHIFT: There is no mass or shift. EXTRA-AXIAL SPACES: There are no extra-axial fluid collections. SULCI AND VENTRICLES: The sulci and ventricles are normal in size and position for the patient's stated age. CEREBRUM: There are no focal parenchymal abnormalities. BRAINSTEM: There are no focal parenchymal abnormalities. CEREBELLUM: There are no focal parenchymal abnormalities. VESSELS: The vessels are grossly normal. PARANASAL SINUSES: The paranasal sinuses are clear. ORBITS: The orbits are unremarkable. BONES AND SOFT TISSUE: No bone or soft tissue abnormalities are noted. OTHER: None IMPRESSION: NO ACUTE INTRACRANIAL PATHOLOGY.
[2017-06-29 17:05] VITALS: BP 150/78
--- NOTE | 2017-06-29 20:25 | ED ---
Hannah Momin Gabriel, scribed for Terri Mazariegos MD on 06/29/17 at 1040 . HPI Chest Pain - HPI Summary HPI Summary: This patient is a 72 year old F BIBA to [facility] with a chief complaint of CP since an hour ago. The patient rates the pain 6/10 in severity describes as a gas bubble in the middle of her chest. Patient reports weakness and nausea. Patient denies SOB. Pt was seen here 4 days ago for syncopal episodes and diagnosed with vagal syndrome; she states her symptoms feel similar to the ones 4 days ago. Pt has a hip replacement 06/03. Pt has not taken any pain medication [employer]. - History of Current Complaint Chief Complaint: EDChestPainROMI Time Seen by Provider: 06/29/17 10:31 Hx Obtained From: Patient Onset/Duration: Started Hours Ago - 1, Still Present Timing: Constant Pain Intensity: 6 Pain Scale Used: 0-10 Numeric Chest Pain Location: Mid Sternal Chest Pain Radiates: No Character: Other: - "gas bubble" Aggravating Factor(s): Nothing Alleviating Factor(s): Nothing Associated Signs and Symptoms: Positive: Negative - SOB, Other: - weakness and nausea - Additional Pertinent History Primary Care Physician: [id number] - Allergy/Home Medications Allergies/Adverse Reactions: Allergies Allergy/AdvReac Type Severity Reaction Status Date / Time Codeine Allergy GI Upset Verified 06/03/17 07:50 Latex Allergy Rash Verified 06/03/17 07:50 CAINS Allergy See Comment Uncoded 06/03/17 07:50 PMH/Surg Hx/FS Hx/Imm Hx Previously Healthy: No Endocrine/Hematology History: Reports: Hx Thyroid Disease, Hx Anemia - NO MEDS Denies: Hx Diabetes Cardiovascular History: Reports: Hx Hypertension Denies: Hx Pacemaker/ICD Respiratory History: Reports: Hx Asthma GI History: Reports: Hx Gastroesophageal Reflux Disease History: Denies: Hx Dialysis, Hx Renal Disease Musculoskeletal History: Reports: Hx Arthritis, Hx Bursitis, Hx Osteoporosis, Hx Tendonitis - HANDS AND ARMS Sensory History: Reports: Hx Cataracts - BEGINNING OF CATARACTS, Hx Contacts or Glasses - GLASSES Denies: Hx Hearing Aid Opthamlomology History: Reports: Hx Cataracts - BEGINNING OF CATARACTS, Hx Contacts or Glasses - GLASSES Neurological History: Reports: Hx Headaches, Hx Migraine - NONE IN 4-5 YEARS Psychiatric History: Reports: Hx Anxiety, Hx Depression - CONTROL WITH MED Denies: Hx Panic Disorder - Surgical History Surgery Procedure, Year, and Place: 1976 HYSTERECTOMY, [facility]. 1999 BILAT BUNIONECTOMY; [place]. FATTY TUMOR REMOVAL LEFT SHOULDER; [place]. 2012 CSP FUSION, [place]. RT SHOULDER BICEP TENDON REPAIR 08/2016. Hip replacement 06/03/17 Hx Anesthesia Reactions: No Infectious Disease History: No Infectious Disease History: Denies: Hx Clostridium Difficile, Hx Hepatitis, Hx Human Immunodeficiency Virus (HIV), Hx of Known/Suspected MRSA, Hx Shingles, Hx Tuberculosis, History Other Infectious Disease, Traveled Outside the [place] in Last 30 Days - Family History Known Family History: Positive: Hypertension - Social History Lives: With Family Alcohol Use: Rare Hx Substance Use: No Substance Use Type: Reports: None Hx Tobacco Use: No Smoking Status (MU): Never Smoked Tobacco Have You Smoked in the Last Year: No Review of Systems Positive: Chest Pain Negative: Shortness Of Breath Positive: Nausea Positive: Weakness All Other Systems Reviewed And Are Negative: Yes Physical Exam - Summary Physical Exam Summary: Appearance: ill-appearing, no pain distress, Well-nourished Skin: Warm, color reflects adequate perfusion, there is a scar on the left hip that is dry and intact Head: Normal Head/Face Eyes: Conjunctiva clear ENT: Normal appearance Neck: Supple Respiratory: Lungs clear, Normal breath sounds, no respiratory distress Cardio: RRR, No murmur, pulses normal, brisk capillary refill Abdomen: soft, nontender Musculoskeletal: Strength Intact/ ROM intact Neuro: Alert, muscle tone normal, ED: facial symmetry, speech normal, sensory/ motor intact Detailed Neuro Exam: A&Ox3, CN II-XII intact, Motor function 5/5, Sensations intact, Gait WNL Psychological: Normal Triage Information Reviewed: Yes Vital Signs On Initial Exam: Initial Vitals Temp Pulse Resp BP Pulse Ox 98.9 F 68 17 160/81 99 06/29/17 10:19 06/29/17 10:19 06/29/17 10:19 06/29/17 10:19 06/29/17 10:19 Vital Signs Reviewed: Yes Diagnostics - Vital Signs Vital Signs Temp Pulse Resp BP Pulse Ox 06/29/17 10: 98.9 F 68 17 160/81 99 - Laboratory Lab Results: Lab Results 06/29/17 06/29/17 06/29/17 Range/Units 10:35 10:35 10:35 WBC 7.4 (3.5-10.8) 10^3/ul RBC 4.27 (4.0-5.4) 10^6/ul Hgb 13.5 (12.0-16.0) g/dl Hct 40 (35-47) % MCV 93 (80-97) fL MCH 32 H (27-31) pg MCHC 34 (31-36) g/dl RDW 15 (10.5-15) % Plt Count 403 (150-450) 10^3/ul MPV 9 (7.4-10.4) um3 Neut % (Auto) 61.9 (38-83) % Lymph % (Auto) 30.7 (25-47) % Laporte % (Auto) 5.8 (1-9) % Eos % (Auto) 0.5 (0-6) % Baso % (Auto) 1.1 (0-2) % Absolute Neuts (auto) 4.6 (1.5-7.7) 10^3/ul Absolute Lymphs (auto) 2.3 (1.0-4.8) 10^3/ul Absolute Monos (auto) 0.4 (0-0.8) 10^3/ul Absolute Eos (auto) 0 (0-0.6) 10^3/ul Absolute Basos (auto) 0.1 (0-0.2) 10^3/ul Absolute Nucleated RBC 0.01 10^3/ul Nucleated RBC % 0.1 INR (Anticoag Therapy) 1.05 H (0.77-1.02) D-Dimer, Quantitative 860 H (Less Than 230) ng/mL Sodium 137 (133-145) mmol/L Potassium 3.7 (3.5-5.0) mmol/L Chloride 106 (101-111) mmol/L Carbon Dioxide 21 L (22-32) mmol/L Anion Gap 10 (2-11) mmol/L BUN 18 (6-24) mg/dL Creatinine 0.65 (0.51-0.95) mg/dL Est GFR ( Amer) 115.9 (>60) Est GFR (Non-Af Amer) 90.1 (>60) BUN/Creatinine Ratio 27.7 H (8-20) Glucose 102 H (70-100) mg/dL Lactic Acid (0.5-2.0) mmol/L Calcium 9.4 (8.6-10.3) mg/dL Magnesium 2.0 (1.9-2.7) mg/dL Total Bilirubin 1.20 H (0.2-1.0) mg/dL AST 21 (13-39) U/L ALT 21 (7-52) U/L Alkaline Phosphatase 87 (34-104) U/L Total Creatine Kinase 18 (10-223) U/L CK-MB (CK-2) 0.7 (0.6-6.3) ng/mL Myoglobin 10.8 L (14.3-65.8) ng/mL Troponin I 0.00 (<0.04) ng/mL Total Protein 6.7 (6.4-8.9) g/dL Albumin 3.8 (3.2-5.2) g/dL Globulin 2.9 (2-4) g/dL Albumin/Globulin Ratio 1.3 (1-3) TSH 1.92 (0.34-5.60) mcIU/mL Thyroxine (T4) 14.66 H (6.09-12.23) mcg/mL 06/29/17 06/29/17 Range/Units 10:35 14:06 WBC (3.5-10.8) 10^3/ul RBC (4.0-5.4) 10^6/ul Hgb (12.0-16.0) g/dl Hct (35-47) % MCV (80-97) fL MCH (27-31) pg MCHC (31-36) g/dl RDW (10.5-15) % Plt Count (150-450) 10^3/ul MPV (7.4-10.4) um3 Neut % (Auto) (38-83) % Lymph % (Auto) (25-47) % Laporte % (Auto) (1-9) % Eos % (Auto) (0-6) % Baso % (Auto) (0-2) % Absolute Neuts (auto) (1.5-7.7) 10^3/ul Absolute Lymphs (auto) (1.0-4.8) 10^3/ul Absolute Monos (auto) (0-0.8) 10^3/ul Absolute Eos (auto) (0-0.6) 10^3/ul Absolute Basos (auto) (0-0.2) 10^3/ul Absolute Nucleated RBC 10^3/ul Nucleated RBC % INR (Anticoag Therapy) (0.77-1.02) D-Dimer, Quantitative (Less Than 230) ng/mL Sodium (133-145) mmol/L Potassium (3.5-5.0) mmol/L Chloride (101-111) mmol/L Carbon Dioxide (22-32) mmol/L Anion Gap (2-11) mmol/L BUN (6-24) mg/dL Creatinine (0.51-0.95) mg/dL Est GFR ( Amer) (>60) Est GFR (Non-Af Amer) (>60) BUN/Creatinine Ratio (8-20) Glucose (70-100) mg/dL Lactic Acid 1.0 (0.5-2.0) mmol/L Calcium (8.6-10.3) mg/dL Magnesium (1.9-2.7) mg/dL Total Bilirubin (0.2-1.0) mg/dL AST (13-39) U/L ALT (7-52) U/L Alkaline Phosphatase (34-104) U/L Total Creatine Kinase (10-223) U/L CK-MB (CK-2) (0.6-6.3) ng/mL Myoglobin (14.3-65.8) ng/mL Troponin I 0.00 (<0.04) ng/mL Total Protein (6.4-8.9) g/dL Albumin (3.2-5.2) g/dL Globulin (2-4) g/dL Albumin/Globulin Ratio (1-3) TSH (0.34-5.60) mcIU/mL Thyroxine (T4) (6.09-12.23) mcg/mL Result Diagrams: 06/29/17 10:35 06/29/17 10:35 Lab Statement: Any lab studies that have been ordered have been reviewed, and results considered in the medical decision making process. - Radiology CXR Radiology Interpretation Completed By: Radiologist - NO ACTIVE CARDIOPULMONARY DISEASE ED physician has reviewed this radiology report - CT CTA head/thorax CT Interpretation Completed By: Radiologist - NO PULMONARY ARTERIAL FILLING DEFECT TO SUGGEST PULMONARY EMBOLISM. ED physician has reviewed this radiology report. CT Brain CT Interpretation Completed By: Radiologist - Brain CT reveal, per radiologist, NO ACUTE INTRACRANIAL PATHOLOGY. ED physician has reviewed this radiology report - EKG 1034 Cardiac Rate: NL EKG Rhythm: Sinus Rhythm - at 71 BPM EKG Interpretation: negative axis minus 53, LAFB, normal AV/IV CT, normal QTc Re-Evaluation - Re-Evaluation First Eval Re-Evaluation Time: 11:40 Change: Unchanged Comment: She reports 7/10 chest discomfort and she was advised her need for CTA. Second Eval Re-Evaluation Time: 14:36 Change: Unchanged - patient reports dizziness mild and abd discomfort like she has to make a BM. Also she states she is hungry. Discharge - Discharge Plan Condition: Stable Disposition: HOME Patient Education Materials: Chest Pain (ED), Dizziness (ED) Forms: *Gen. Provider Communication Referrals: Kika Hubbard, [employer] [Primary Care Provider] - 1 Week (definite.) Additional Instructions: We did not find a serious cause for your chest pressure or your dizziness. We have given you a copy of your EKG, xray, CTs and labs to give to Kika Brown. We gave you lactulose 30cc and a dulcolax suppository to help with a bowel movement. Follow up with Kika Brown. Return to the ER if you have new or worsening symptoms. The documentation as recorded by the Hannah douglas Gabriel accurately reflects the service I personally performed and the decisions made by me, Treri Mazariegos MD.
== END 2017-06-29 17:33 | disposition home or self-care (01) ==
LOC: ED 10:13
DX: R07.9 Chest pain, unspecified (principal); R11.0 Nausea; R53.1 Weakness
CPT/HCPCS: 36415; 70450; 71010; 71275; 80053; 82550; 82553; 83605; 83735; 83874; 84436; 84443; 84484; 85025; 85379; 85610; 93005; 96361; 96374; 96375; 99283; A9270-GY; J2270; J2405; Q9967

== ENCOUNTER → 2019-02-11 | Day surgery (SDC) | payer MEDICARE, OTHER ==
--- NOTE | 2019-01-30 16:53 | HP ---
AMENDED REPORT NOW INCLUDES DESIGNATED COSIGNER HISTORY AND PHYSICAL: DATE OF ADMISSION/SURGERY: 02/11/19 DATE OF OFFICE VISIT: 01/27/19 ATTENDING SURGEON: Dr. Missy June.* (DICTATED BY ISAEL NAVARRETE) PROCEDURE: Right possible partial meniscectomy, possible chondroplasty and synovectomy, possible fat pad debridement. CHIEF COMPLAINT: Right knee pain. HISTORY OF PRESENT ILLNESS: Mrs. Sanchez is a 74-year-old female who reports over 2 months of severe right knee pain. She has recently started exercising more and developed anterior and medial joint line pain. This is a sharp, 3-6/10 pain that is intermittent. She sometimes feels clicking and catching along the medial joint line. The patient reports that she has tried anti-inflammatories, home exercise program, rest, compression, and ice without relief of pain. She has also tried turmeric and other herbal remedies. At this point, she has failed conservative treatment and would like to proceed with arthroscopy. PAST MEDICAL HISTORY: Hypothyroidism, hypertension, GERD, depression, heart murmur, heart palpitations, and asthma. PAST SURGICAL HISTORY: She had a cervical fusion, foot surgery, hysterectomy, and left upper extremity benign mass excision. MEDICATIONS: 1. Calcium citrate 500 mg 1 p.o. daily. 2. Ibuprofen 600 mg t.i.d. p.r.n. for pain. 3. Levothyroxine sodium 112 mcg 1 p.o. daily. 4. Ranitidine HCl 150 mg 1 p.o. daily p.r.n. 5. Fluoxetine HCl 40 mg 1 p.o. daily. 6. B12 1000 mcg p.o. daily. 7. Compounded estrogen testosterone, unknown dosage and frequency. 8. Atorvastatin calcium 20 mg p.o. daily. 9. Iron supplement p.o. daily. 10. Xanax, unknown dosage p.r.n. 11. Alendronate sodium 70 mg 1 tab with p.o. once weekly. 12. Turmeric 500 mg 5 capsules daily. 13. Fish oil 500 mg 1 p.o. daily. ALLERGIES: CODEINE. FAMILY HISTORY: Positive for cancer. SOCIAL HISTORY: The patient lives with her . She denies any tobacco or recreational drug use. She does have occasional alcohol use. She is right hand dominant. She is usually very active. REVIEW OF SYSTEMS: General: Negative for fevers, chills, night sweats, unexplained weight loss or gain. No known anesthesia problems. HEENT: Positive for headache. Negative for lightheadedness, syncopal episodes, or visual changes. Integumentary: Negative for abrasions, lesions, open wounds. Cardiothoracic: Negative for hypertension, chest pain, palpitations, or edema. Respiratory: Negative for shortness of breath with exertion, chronic cough, or wheezing. GI: Positive for GERD symptoms. Negative for nausea, vomiting, diarrhea, or constipation. : Negative for nocturia, urinary frequency, urgency, history of UTIs, kidney problems. Musculoskeletal: Positive for right knee pain and positive for chronic back pain. Negative for history of fractures. Neurologic: Negative for paresthesias, numbness, history of seizure , stroke, or poor balance. Negative for anxiety or depression. Endocrine: Positive for thyroid issues. Negative for diabetes. Hematologic: Negative for easy bruising, anemia, bleeding disorders, or history of DVT. ID: Negative for history of MRSA infection, hep C, or HIV. PHYSICAL EXAMINATION GENERAL: Well-developed, well-nourished 74-year-old female, in no acute distress. VITAL SIGNS: Height 66 inches, weight 157 pounds. Pulse 74, BP is 118/70, respirations 12. Pain level 3. BMI 25.3. HEENT: Normocephalic and atraumatic. PERRLA. Extraocular movements intact. NECK: Supple. No palpable lymph nodes. Throat is clear. PULMONARY: Lungs are clear to auscultation bilaterally. No wheezes, rales, or rhonchi. CARDIO: Regular rate and rhythm. S1 and S2 normal. No murmurs, rubs or gallops. No edema. ABDOMEN: Positive bowel sounds, soft, and nontender. MUSCULOSKELETAL: Right lower extremity: The patient's skin is intact. No abrasions or open wounds. No palpable masses or lymph nodes. Moderate effusion at the knee joint. Tenderness along the medial joint line and anterior joint line. Positive Apley's and Gina's. No varus or valgus instability. Negative Shelby's. Range of motion is 5 to 110 degrees of flexion at the knee with pain anteromedially. Distally, no edema, varicosities , or hyporeflexia. 5/5 ankle dorsiflexion and plantar flexion strength bilaterally. Full sensation to light touch in all nerve distributions and a 2+ palpable DP pulse. NEUROLOGIC: A and O x3. Cranial nerves II through XII intact. Sensation is intact to light touch. DIAGNOSTIC STUDIES/LAB DATA: MRI of the right knee from 01/12/19 shows some mild arthritic changes. There is increased uptake at the medial meniscus, but no obvious discrete tear. Significant amount of edema in the infrapatellar fat pad. ACL and PCL appeared to be intact. IMPRESSION: Right knee possible medial meniscus tear. PLAN: The patient is scheduled to undergo right knee arthroscopy, possible partial meniscectomy, possible chondroplasty, synovectomy, and possible fat pad debridement on 02/11/19. Dr. June discussed the procedure as well as the risks and benefits with the patient and she elects to proceed. She will follow up in the office 10 to 14 days postop for followup and suture removal. A prescription for Percocet will be e-scribed to the patient's pharmacy for postoperative pain management and I-STOP was performed today in the office. ISAEL CALI [id number]/[facility] #: [id number] RACHEL
[~2019-02-11] MED LIST changes: +Acetaminophen TAB* 325 MG PO PRN; -Buffered Lidocaine 0.9% SYRIN* 5 ML/SYR SYRINGE INTRADERM ONE; +Buffered Lidocaine 1% SYRIN* 1 ML/SYRINGE INTRADERM ONE; +Dexamethasone IV* 4 MG/ML 1 ML (4 MG) ONE; +DiMENhydriNATE IV* 50 MG/ML VIAL ONE; +EPINEPHRINE 1 MG/ML 1 ML VIAL ONE; +Famotidine IV* 10 MG/ML 2 ML (20 mg) ONE; +HYDROcodone/ACETAMIN 5-325 MG* 1 TAB ONE; +HYDROmorphone INJ1* 1 MG/ML SYRINGE ONE; +Ketorolac INJ* 30 MG/ML 1 ML VIAL ONE; +Lactated Ringers 1000 ML Bag* 1,000 ML IV SCH; +Lidocaine 2% PF * 5 ML VIAL ONE; +Midazolam* 1 MG/ML 5 ML VIAL (5 MG) ONE; -Morphine INJ* 2 MG/ML 1 ML SYRINGE (TWO MG - NEW SYRINGE VERSION) IV PRN; +Naloxone* 0.4 MG/ML 1 ML VIAL IV PRN; +Ondansetron INJ* 2 MG/ML VIAL ONE; -PROCHLORPERAZINE INJ 5 MG/ML 2 ML VIAL IV PRN; +Propofol* 10 MG/ML 20 ML BTL ONE; +ROPIVACAINE 5 MG/ML 30 ML BTL (0.5%) ONE; -Scopolamine 1.5 mg* PATCH TRANSDERM PRN; +ceFAZolin 2 GM in NS PREMIX(*) 2 GM/100 ML BAG IVPB ONE; -fentaNYL* 50 MCG/ML 2 ML VIAL (100 MCG VIAL) IV PRN; +fentaNYL* 50 MCG/ML 2 ML VIAL (100 MCG VIAL) ONE; +methylPREDNISolone ACETATE 80* 80 MG/ML 1 ML VIAL ONE
[2019-02-11] MEDS: HYDROmorphone INJ1* 1 MG/ML SYRINGE IV PRN ×5 (08:45→09:34)
[2019-02-11 10:13] VITALS: BP 151/82
--- NOTE | 2019-02-11 23:05 | OP ---
DATE OF OPERATION: 02/11/19 - MERGED WITH [facility] DATE OF : 49 ATTENDING SURGEON: Missy June MD ACID SUPERVISOR: ISAEL Owen. Ms. Finch did help throughout the procedure with preparation of the leg, wound retraction, manipulation of the knee, and wound closure. ANESTHESIOLOGIST: Dr. Wang. ANESTHESIA: General. PRE-OP DIAGNOSIS: Right knee anterior synovitis and medial meniscal tear. POST-OP DIAGNOSIS: Right knee anterior synovitis and medial meniscal tear. OPERATIVE PROCEDURE: Right knee arthroscopy with anterior synovectomy and partial medial meniscectomy. SPECIMEN: None. COMPLICATIONS: None. ESTIMATED BLOOD LOSS: Less than 25 cc. BRIEF HISTORY/INDICATION: Ms. Sanchez is a 74-year-old female who developed the onset of severe mechanical symptoms in the right knee over the last 3 months. She failed conservative treatment and MRI showed a possible medial meniscal tear as well as some anterior fat pad inflammation and synovitis. Due to the patient's severe pain and decreased quality of life, she elected to undergo right knee arthroscopy with partial meniscectomy, possible chondroplasty, possible synovectomy, possible plica excision. Informed consent was obtained from the patient. She understood the risks of surgery included, but were not limited to bleeding, infection, damage to nearby structures, continued pain, need for further surgery, retear of the meniscus, progression of arthritis, stroke, heart attack, blood clot, and . She wishes to proceed. 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 She had a displaced parrot beak type tear in the posterior medial meniscus. This is in the white-red zone. DESCRIPTION OF PROCEDURE: Ms. Sanchez was identified in the preanesthesia unit. Her right lower extremity was marked as the correct operative side. Informed consent was signed and placed in the chart. The patient was taken to the operating room and placed under anesthesia without difficulty. Right lower extremity was prepped and draped in the usual sterile fashion. Preop time-out was made to correctly identify the patient, side and site. Appropriate perioperative antibiotics were given within 1 hour of incision. A 0.5 cm lateral portal incision was made with a 10-blade and carried down to the capsule. Trocar was introduced. As soon as the light and water sources were turned on, there was immediate visualization of the suprapatellar pouch. A tour of the knee joint was performed. Suprapatellar pouch had no obvious abnormality. Patellofemoral compartment showed some minimal degenerative changes , grade 2 and 3 Outerbridge cartilage changes. Medial gutter showed no loose body or plica. The anterior joint line did have significant synovitis just posterior to the prepatellar fat pad. Medial compartment showed some minimal grade 3 and 4 Outerbridge cartilage changes along the medial femoral condyle. There was a visibly displaced parrot beak type tear of the posterior medial meniscus. The displaced fragment was in the joint space. ACL and PCL appeared to be intact. The knee was placed in a [id number] position. There was no obvious lateral meniscal tear. Minimal degenerative changes in the lateral compartment. Lateral gutter showed no obvious abnormality or loose body. Under direct visualization, a medial portal incision was made with a #10 blade. A probe was introduced and the second tour of the knee joint was performed. No additional findings were noted. Shaver and radiofrequency ablation wand were used to perform anterior synovectomy. The inflamed anterior soft tissue was conservatively excised. Next , a shaver and straight biter were used to perform partial medial meniscectomy. The parrot beak type tear was carefully excised mainly in the white-red zone of the posterior medial meniscus. A smooth border of the meniscus was obtained. Further probing of the medial meniscus showed no additional tears. Radio-frequency ablation wand was used to further smooth the edge of the medial meniscus. The knee was copiously irrigated with sterile saline. All instruments were removed. Incisions were closed using 3-0 nylon suture. Intraarticular injection of 80 mg Depo-Medrol and 6 cc of 0.25% Marcaine was placed in the knee joint. The patient's incisions were covered with Xeroform, 4x4s, and Webril. Blair wrap and cold pack were placed over this. The patient's anesthesia was reversed without difficulty. She was taken to the PACU in stable condition. Intended weightbearing will be weightbearing as tolerated. Intended DVT prophylaxis will be aspirin. I will see her in follow up in 2 weeks' time for suture removal. [id number]/[facility] #: [id number] [facility] HOSPITALSamantha
== END | disposition home or self-care (01) ==
LOC: OR 05:32
PROVIDERS: ATTEND Orthopaedic Surgery Adult Reconstructive Orthopaedic Surgery
DX: S83.241A Other tear of medial meniscus, current injury, right knee, initial encounter (principal); M65.861 Other synovitis and tenosynovitis, right lower leg; X58.XXXA Exposure to other specified factors, initial encounter; Y92.9 Unspecified place or not applicable; I10 Essential (primary) hypertension; K21.9 Gastro-esophageal reflux disease without esophagitis; E03.9 Hypothyroidism, unspecified; F41.8 Other specified anxiety disorders; K27.9 Peptic ulcer, site unspecified, unspecified as acute or chronic, without hemorrhage or perforation; J30.89 Other allergic rhinitis
CPT/HCPCS: J0690; J1040; J1100; J1170; J1240; J1885; J2250; J2405; J2704; J2795; J3010

== ENCOUNTER 2023-05-27 11:34 | Observation (INO) ==
[~2023-05-27 11:34] MED LIST changes: -Acetaminophen TAB* 325 MG PO PRN; +Buffered Lidocaine 1% SYRIN 1 ml INTRADERM ONE; -Buffered Lidocaine 1% SYRIN* 1 ML/SYRINGE INTRADERM ONE; -Dexamethasone IV* 4 MG/ML 1 ML (4 MG) ONE; -DiMENhydriNATE IV* 50 MG/ML VIAL IV PUSH PRN; -DiMENhydriNATE IV* 50 MG/ML VIAL ONE; -EPINEPHRINE 1 MG/ML 1 ML VIAL ONE; -Famotidine IV* 10 MG/ML 2 ML (20 mg) IV ONE; -Famotidine IV* 10 MG/ML 2 ML (20 mg) ONE; -HYDROcodone/ACETAMIN 5-325 MG* 1 TAB ONE; -HYDROmorphone INJ1* 1 MG/ML SYRINGE ONE; -Ketorolac INJ* 30 MG/ML 1 ML VIAL ONE; -Lactated Ringers 1000 ML Bag* 1,000 ML IV SCH; +Lactated Ringers 1000 ml BAG 1,000 ML IV SCH; -Lidocaine 2% PF * 5 ML VIAL ONE; -Midazolam* 1 MG/ML 5 ML VIAL (5 MG) ONE; -Naloxone* 0.4 MG/ML 1 ML VIAL IV PRN; -Ondansetron INJ* 2 MG/ML VIAL ONE; -Propofol* 10 MG/ML 20 ML BTL ONE; -ROPIVACAINE 5 MG/ML 30 ML BTL (0.5%) ONE; -ceFAZolin 2 GM in NS PREMIX(*) 2 GM/100 ML BAG IVPB ONE; -fentaNYL* 50 MCG/ML 2 ML VIAL (100 MCG VIAL) ONE; -methylPREDNISolone ACETATE 80* 80 MG/ML 1 ML VIAL ONE
[2023-05-27] MEDS ORDERED: Tranexamic Acid 1 GM/100ML BAG 2,000 MG/200 ML BAG IV ONE (12:09)
[2023-05-27] MEDS ORDERED: ceFAZolin 2 GM in NS PREMIX 2 GM/100 ML BAG IVPB ONE (12:09)
[2023-05-27 13:06] LABS: Rapid COVID-19 Molecular Undetected (Undetected)
[2023-05-27] MEDS ORDERED: Lidocaine 2% PF 5 ML VIAL ONE (13:45)
[2023-05-27] MEDS ORDERED: Ondansetron 4 mg VIAL 2 MG/ML 2 ml VIAL ONE (13:45)
[2023-05-27] MEDS ORDERED: fentaNYL 100 mcg/2 ml 50 MCG/ML VIAL ONE ×2 (13:45→18:30)
[2023-05-27] MEDS ORDERED: Dexamethasone IV 4 MG/ML VIAL 1 ml VIAL ONE (13:45)
[2023-05-27] MEDS ORDERED: Propofol 10 MG/ML 20 ML BTL ONE (13:45)
[2023-05-27] MEDS ORDERED: Midazolam 2 mg/2 ml VIAL 1 mg/ml 2 ml VIAL (2 mg) ONE (13:46)
[2023-05-27] MEDS ORDERED: Sodium Citrate/Citric Acid LIQ 15 ML UDC ONE (14:23)
[2023-05-27] MEDS ORDERED: ROPIVACAINE 5 MG/ML 30 ML BTL (0.5%) ONE ×2 (14:26→14:41)
[2023-05-27] MEDS ORDERED: Morphine 2 MG/ML SYRINGE IV PRN (16:33)
[2023-05-27] MEDS ORDERED: Lactulose 30 ml UDC PO PRN (16:33)
[2023-05-27] MEDS ORDERED: Ondansetron 4 mg VIAL 2 MG/ML 2 ml VIAL IV PRN ×2 (16:33→18:29)
[2023-05-27] MEDS ORDERED: Magnesium Hydroxide LIQ 30 ML UDC PO PRN (16:33)
[2023-05-27] MEDS ORDERED: Ondansetron ODT 4 mg TAB 4 MG TAB PO PRN (16:33)
[2023-05-27] MEDS ORDERED: Scopolamine 1 mg/72hr PATCH TRANSDERM PRN (16:39)
[2023-05-27] MEDS ORDERED: Lactated Ringers 1000 ml BAG 1,000 ML IV SCH (17:00)
[2023-05-27] MEDS ORDERED: Naloxone 0.4 mg VIAL 0.4 mg/ml 1 ml VIAL IV PRN (18:29)
[2023-05-27] MEDS ORDERED: Metoclopramide 5 MG/ML VIAL (10 mg) IV PRN (18:29)
[2023-05-27] MEDS ORDERED: HYDROcodone/ACETAMIN 5/325 mg TAB PO PRN (18:29)
[2023-05-27] MEDS ORDERED: oxyCODONE/Acetamin 5/325 mg TAB ONE (18:30)
[2023-05-27] MEDS: fentaNYL 100 mcg/2 ml 50 MCG/ML VIAL IV PRN ×4 (18:37→19:44)
[2023-05-27] MEDS ORDERED: HYDROcodone/ACETAMIN 5/325 mg TAB ONE (18:39)
[2023-05-27] MEDS: Magnesium Hydroxide LIQ 30 ML UDC PO SCH (21:21)
[2023-05-28] MEDS: ceFAZolin 1 GM ADVAN 1 GM in NS 0.9% 50 ML 50 ML IVPB SCH ×3 (00:01→16:23)
[2023-05-28 06:12] LABS: Hematocrit 36.5 % (35-45); Hemoglobin 12.3 g/dL (11.5-14.3); Mean Platelet Volume 9.7 fL (7.5-11.2); Platelet Count 246 10^3/uL (150-450)
[2023-05-28 06:18] LABS: Calcium 8.7 mg/dL (8.6-10.3); Creatinine, Serum 0.84 mg/dL (0.51-0.95); Potassium 4.4 mmol/L (3.5-5.0)
[2023-05-28] MEDS ORDERED: Vitamin THERAPEUTIC TAB PO SCH (09:00)
[2023-05-28] MEDS ORDERED: FERROUS SULFATE 27 MG PO SCH (09:00)
[2023-05-28] MEDS: Magnesium Hydroxide LIQ 30 ML UDC PO SCH (09:18)
[2023-05-28 14:22] VITALS: BP 148/74
== END 2023-05-28 17:05 | disposition home or self-care (01) ==
LOC: SSU 11:34 → OR 11:34
PROVIDERS: ADMIT Orthopaedic Surgery Adult Reconstructive Orthopaedic Surgery; ATTEND Orthopaedic Surgery Adult Reconstructive Orthopaedic Surgery